=== PATIENT | female | born 1940 | race Caucasian/White ===

== ENCOUNTER → 2017-07-29 | Day surgery (SDC) | payer OTHER ==
[2017-06-26 08:13] VITALS: Ht 172.7 cm; Wt 77.3 kg
[~2017-07-29] VITALS: Ht 172.7 cm; Wt 77.3 kg
[~2017-07-29] MED LIST: 500ML BSS 0.3ML EPI 1:1000PF IRRIG ONE; ACETAMINOPHEN 325 MG TAB PO PRN; AMVISC PLUS 0.8ML SYRINGE INT OCU ONE; ASCA500 PO; ASPI81TA21 PO; ATROPINE SULFATE 0.1 MG/ML 5ML SYR IV PRN; BSS FLUSH ONE; CALC500C70 PO; CHOL100010 PO; EpHEDrine SULFATE INJ 50 MG/ML AMP IV PRN; EpINEphrine INJ 1MG/ML AMP 1 MG/ML AMP ONE; FISHOIL PO; GLCSC500400 PO; LACTATED RINGER'S 1000ML 500 ML IV SCH; LEVO150T PO; LIDOCAINE 3.5% OPH GEL PER APPLICATION CHARGE ONE; LIDOCAINE HCL 1% MPF 2 ML VIAL ONE; MECL1TAB42 PO; MIDAZOLAM HCL 1 MG/ML 2ML VIAL ONE; MULT-1092 PO; OCUCOAT 1 ML SOLN IO ONE; PHENYLEPHRINE HCL 10% OP SOLN PER DROP CHARGE OPL SCH; POVIDONE-IODINE OP SOLN 30 ML BTL ONE; PROPARACAINE 0.5% OP SOLN PER DROP CHARGE OPL SCH; TOBRAMYCIN/DEXAMETHASONE OPH OINT PER APPLN CHARGE ONE
[2017-07-29] MEDS: PHENYLEPHRINE HCL 2.5% OP SOLN PER DROP CHARGE OPL SCH ×2 (09:13→09:18)
[2017-07-29] MEDS: TROPICAMIDE 1% OP SOLN PER DROP CHARGE OPL SCH ×2 (09:14→09:19)
[2017-07-29] MEDS: CYCLOPENTOLATE HCL 1% OP SOLN PER DROP CHARGE OPL SCH ×2 (09:15→09:20)
[2017-07-29] MEDS: KETOROLAC 0.5% OP SOLN PER DROP CHARGE OPL SCH ×2 (09:16→09:21)
[2017-07-29] MEDS: GATIFLOXACIN OP SOLN PER DROP CHARGE OPL SCH ×2 (09:17→09:26)
--- NOTE | 2017-07-29 09:57 | History & Physical Bridge - [place] ---
H&P Re-Evaluation Bridge Note: I have examined the patient, reviewed the History & Physical and in the interval since the performance of the History & Physical I have noted the following changes of clinical significance: No changes noted
--- NOTE | 2017-07-29 10:34 | [facility] Operative Report ---
Operative Report Date of Service Jul 29, 2017. Operative Report 1. PREOPERATIVE DIAGNOSIS: Cataract of the left eye. 2. POSTOPERATIVE DIAGNOSIS: Same. 3. PROCEDURE: Phacoemulsification with intraocular lens implantation of the left eye. SURGEON: Dr. Kennedy Nathan. ANESTHESIA: Topical Lidocaine gel, 1% Non- Preserved intracameral Lidocaine, and monitored intravenous sedation. INDICATIONS FOR THE PROCEDURE: The patient is a 77 - year-old female with a history of cataract of the left eye causing significant visual impairment. The details of the proposed procedure were explained to the patient who asked appropriate questions and following discussion of all risks, benefits and alternatives agreed to have the procedure done. 4. OPERATION AND FINDINGS: DESCRIPTION OF PROCEDURE: After informed consent was obtained, the patient was brought to the Operating Room at the [facility]. The patient was placed in a supine position and then the left eye was prepped and draped in the usual sterile fashion for intraocular surgery. A drop of topical Lidocaine gel was placed in the operative eye. A wire lid speculum was then placed in the fornices. A corneal paracentesis was then created temporally. The Non-Preserved Lidocaine was then instilled into the anterior chamber. The anterior chamber was then pressurized with viscoelastic. A 2.0 mm clear corneal incision was then created temporally. A cystotome was inserted into the anterior chamber and used to create a tear in the anterior lens capsule. This capsular tear was then used to create a small flap and the flap was dragged in a counterclockwise direction in order to create a continuous curvilinear capsulorrhexis. Hydrodissection was accomplished with balanced salt solution. Phacoemulsification of the lens nucleus was then performed in a standard [id number]-uhb-pugbxhy technique. The phaco time was 24 seconds with an average power of 13 %. The remaining cortical material was removed using irrigation aspiration. The capsular bag was then filled with viscoelastic. A Sukhwinder SA60AT +35.0 diopters lens was then loaded into the injector and injected into the capsular bag. The remaining viscoelastic was removed with the irrigation aspiration handpiece. The wound was hydrated and then checked and found to be watertight. The intraocular pressure was checked and found to be adequate. The wire lid speculum was removed and the patient's face was cleaned and dried. TobraDex ointment was placed in the inferior fornix. The patient was discharged to the Recovery Room having tolerated the procedure well. There were no complications. The patient will be seen tomorrow in the office for follow-up. I attest to the content of the Intraoperative Record and any orders documented therein. Any exceptions are noted below.
--- NOTE | 2017-07-29 10:34 | Discharge Instructions-SurgCtr ---
Discharge Instructions Date of Service Jul 29, 2017. Visit Reason for Visit: Cataract Left Eye Discharge Discharge Diagnosis / Problem: cataract Discharge Goals Goal(s): Improve function Activity Recommendations Activity Limitations: per Instructions/Follow-up section Anesthesia . Post Anesthesia Instructions: If you have had General Anesthesia or IV Sedation: * Do not drive today. * Resume driving when surgeon permits. * Do not make important decisions or sign legal documents today. * Call surgeon for: 1. Temperature elevations greater than 101 degrees F. 2. Uncontrollable pain. 3. Excessive bleeding. 4. Persistent nausea and vomiting. 5. Medication intolerance (nausea, vomiting or rash). * For nausea and vomiting use only clear liquids such as: tea, soda, bouillon until nausea subsides, then gradually increase diet as tolerated. * If you have any concerns or questions, call your surgeon's office. If physician is unavailable and it is an emergency, call 911 or go to the nearest emergency room. . Instructions / Follow-Up Instructions / Follow-Up ACTIVITY RECOMMENDATIONS: * No strenuous lifting, jogging or running for 4 days * No swimming or yard work for 1 week. * Limited bending is permitted, such as putting on shoes. RETURN TO SCHOOL/WORK: No work until seen by physician in office. MEDICATIONS: Resume previous medications unless instructed otherwise by your surgeon. This includes eye drops for glaucoma. Zymaxid/Gatifloxacin (boykin cap) - one drop every 2 hours until bedtime Nevanac/Ilevro/Prolensa/Ketorolac (aguayo cap) - one drop every 4 hours until bedtime Prednisolone/Durezol (white/pink cap, SHAKE WELL) - one drop every 2 hours until bedtime Starting tomorrow - all 3 drops every 4 hours until seen in the office Optive drops - as needed for discomfort SPECIAL CARE INSTRUCTIONS: * Wear eyeshield when sleeping, for four nights. * You may wear your own glasses or sunglasses while awake. * You may read or watch TV * You may shower and wash your face, but be gentle around the eye and pat dry. * Blurry vision and mild irritation are normal. * Call office if pain is more severe or vision becomes dark at . FOLLOW UP VISIT: Follow-up with Dr Nathan tomorrow. Diet Recommendations Home Diet: resume previous diet Procedures Procedures Performed: Left Cataract Phacoemulsification With Intraocular Lens Implant Pending Studies Studies pending at discharge: no Medical Emergencies . Who to Call and When: Medical Emergencies: If at any time you feel your situation is an emergency, please call 911 immediately. . Non-Emergent Contact Non-Emergency issues call your: [employer] Instructional Assistant . . "Provider Documentation" section prepared by Kennedy Nathan. .
[2017-07-29 11:20] VITALS: BP 149/69; PULSE 63; TEMP 36.6; O2SAT 96
--- NOTE | 2017-07-29 11:31 | Anesthesia Progress Nt - [facility] ---
Anesthesia Post Op Note Date & Time Jul 29, 2017 at 11:31 Vital Signs Pain Intensity: 0 Vital Signs Past 12 Hours Date Time Temp Pulse Resp B/P (MAP) Pulse Ox O2 Delivery O2 Flow Rate FiO2 07/29/17 11:20 36.6 63 14 149/69 (95) 96 Room Air 07/29/17 10:36 36.6 64 14 148/76 (100) 64 Room Air 07/29/17 09:06 36.5 80 16 158/91 (113) 96 Room Air Notes Mental Status: alert / awake / arousable, participated in evaluation Pt Amnestic to Procedure: Yes Nausea / Vomiting: adequately controlled Pain: adequately controlled Airway Patency, RR, SpO2: stable & adequate BP & HR: stable & adequate Hydration State: stable & adequate Anesthetic Complications: no major complications apparent
== END | disposition home or self-care (01) ==
LOC: X.SURG 08:51
PROVIDERS: ATTEND Ophthalmology
DX: H26.9 Unspecified cataract (principal); E11.9 Type 2 diabetes mellitus without complications; E78.5 Hyperlipidemia, unspecified; E03.9 Hypothyroidism, unspecified; Z79.82 Long term (current) use of aspirin; Z79.899 Other long term (current) drug therapy

== ENCOUNTER → 2017-08-12 | Day surgery (SDC) | payer OTHER ==
[2017-08-04 13:29] VITALS: Ht 172.7 cm; Wt 77.3 kg
[~2017-08-12] VITALS: Ht 172.7 cm; Wt 77.3 kg
[~2017-08-12] MED LIST changes: -PHENYLEPHRINE HCL 10% OP SOLN PER DROP CHARGE OPL SCH; +PHENYLEPHRINE HCL 10% OP SOLN PER DROP CHARGE OPR SCH; -PROPARACAINE 0.5% OP SOLN PER DROP CHARGE OPL SCH; +PROPARACAINE 0.5% OP SOLN PER DROP CHARGE OPR SCH
[2017-08-12] MEDS: CYCLOPENTOLATE HCL 1% OP SOLN PER DROP CHARGE OPR SCH ×2 (08:35→08:49)
[2017-08-12] MEDS: PHENYLEPHRINE HCL 2.5% OP SOLN PER DROP CHARGE OPR SCH ×2 (08:35→08:47)
[2017-08-12] MEDS: TROPICAMIDE 1% OP SOLN PER DROP CHARGE OPR SCH ×2 (08:36→08:48)
[2017-08-12] MEDS: KETOROLAC 0.5% OP SOLN PER DROP CHARGE OPR SCH ×2 (08:39→08:51)
[2017-08-12] MEDS: GATIFLOXACIN OP SOLN PER DROP CHARGE OPR SCH ×2 (08:40→08:54)
--- NOTE | 2017-08-12 09:21 | Discharge Instructions-SurgCtr ---
Discharge Instructions Date of Service Aug 12, 2017. Visit Reason for Visit: Cataract Right Eye Discharge Discharge Diagnosis / Problem: cataract Discharge Goals Goal(s): Improve function Activity Recommendations Activity Limitations: per Instructions/Follow-up section Anesthesia . Post Anesthesia Instructions: If you have had General Anesthesia or IV Sedation: * Do not drive today. * Resume driving when surgeon permits. * Do not make important decisions or sign legal documents today. * Call surgeon for: 1. Temperature elevations greater than 101 degrees F. 2. Uncontrollable pain. 3. Excessive bleeding. 4. Persistent nausea and vomiting. 5. Medication intolerance (nausea, vomiting or rash). * For nausea and vomiting use only clear liquids such as: tea, soda, bouillon until nausea subsides, then gradually increase diet as tolerated. * If you have any concerns or questions, call your surgeon's office. If physician is unavailable and it is an emergency, call 911 or go to the nearest emergency room. . Diet Recommendations Home Diet: resume previous diet Pending Studies Studies pending at discharge: no Medical Emergencies . Who to Call and When: Medical Emergencies: If at any time you feel your situation is an emergency, please call 911 immediately. . Non-Emergent Contact Non-Emergency issues call your: Inspector Air Carrier . . "Provider Documentation" section prepared by Kennedy Nathan. .
--- NOTE | 2017-08-12 09:22 | [facility] Operative Report ---
Operative Report Date of Service Aug 12, 2017. Operative Report 1. PREOPERATIVE DIAGNOSIS: Cataract of the right eye. 2. POSTOPERATIVE DIAGNOSIS: Same. 3. PROCEDURE: Phacoemulsification with intraocular lens implantation of the right eye. SURGEON: Dr. Kennedy Nathan. ANESTHESIA: Topical Lidocaine gel, 1% Non- Preserved intracameral Lidocaine, and monitored intravenous sedation. INDICATIONS FOR THE PROCEDURE: The patient is a 77 - year-old female with a history of cataract of the right eye causing significant visual impairment. The details of the proposed procedure were explained to the patient who asked appropriate questions and following discussion of all risks, benefits and alternatives agreed to have the procedure done. 4. OPERATION AND FINDINGS: DESCRIPTION OF PROCEDURE: After informed consent was obtained, the patient was brought to the Operating Room at the [facility]. The patient was placed in a supine position and then the right eye was prepped and draped in the usual sterile fashion for intraocular surgery. A drop of topical Lidocaine gel was placed in the operative eye. A wire lid speculum was then placed in the fornices. A corneal paracentesis was then created temporally. The Non-Preserved Lidocaine was then instilled into the anterior chamber. The anterior chamber was then pressurized with viscoelastic. A 2.0 mm clear corneal incision was then created temporally. A cystotome was inserted into the anterior chamber and used to create a tear in the anterior lens capsule. This capsular tear was then used to create a small flap and the flap was dragged in a counterclockwise direction in order to create a continuous curvilinear capsulorrhexis. Hydrodissection was accomplished with balanced salt solution. Phacoemulsification of the lens nucleus was then performed in a standard nvkbzi-hhu-ddkcczo technique. The phaco time was 24 seconds with an average power of 13 %. The remaining cortical material was removed using irrigation aspiration. The capsular bag was then filled with viscoelastic. A Sukhwinder SA60AT +35.0 diopters lens was then loaded into the injector and injected into the capsular bag. The remaining viscoelastic was removed with the irrigation aspiration handpiece. The wound was hydrated and then checked and found to be watertight. The intraocular pressure was checked and found to be adequate. The wire lid speculum was removed and the patient's face was cleaned and dried. TobraDex ointment was placed in the inferior fornix. The patient was discharged to the Recovery Room having tolerated the procedure well. There were no complications. The patient will be seen tomorrow in the office for follow-up. I attest to the content of the Intraoperative Record and any orders documented therein. Any exceptions are noted below.
[2017-08-12 09:24] VITALS: TEMP 36.8
[2017-08-12 09:40] VITALS: BP 139/86; PULSE 64; O2SAT 94
--- NOTE | 2017-08-12 09:44 | Anesthesia Progress Nt - [facility] ---
Anesthesia Post Op Note Date & Time Aug 12, 2017 at 09:44 Vital Signs Pain Intensity: 0 Vital Signs Past 12 Hours Date Time Temp Pulse Resp B/P (MAP) Pulse Ox O2 Delivery O2 Flow Rate FiO2 08/12/17 09:40 64 16 139/86 (103) 94 Room Air 08/12/17 09:24 36.8 67 16 139/79 (99) 94 Room Air 08/12/17 08:05 36.5 84 16 143/84 (103) 95 Room Air Notes Mental Status: alert / awake / arousable, participated in evaluation Pt Amnestic to Procedure: Yes Nausea / Vomiting: adequately controlled Pain: adequately controlled Airway Patency, RR, SpO2: stable & adequate BP & HR: stable & adequate Hydration State: stable & adequate Anesthetic Complications: no major complications apparent
== END | disposition home or self-care (01) ==
LOC: X.SURG 07:56
PROVIDERS: ATTEND Ophthalmology
DX: H25.9 Unspecified age-related cataract (principal); E11.9 Type 2 diabetes mellitus without complications; E78.5 Hyperlipidemia, unspecified; E03.9 Hypothyroidism, unspecified; Z87.891 Personal history of nicotine dependence; Z79.82 Long term (current) use of aspirin; Z79.899 Other long term (current) drug therapy

== ENCOUNTER 2017-10-06 17:05 | Inpatient (IN) | payer OTHER ==
[~2017-10-06] VITALS: Ht 172.7 cm; Wt 79.8 kg
[~2017-10-06 17:05] MED LIST changes: -500ML BSS 0.3ML EPI 1:1000PF IRRIG ONE; -ACETAMINOPHEN 325 MG TAB PO PRN; -AMVISC PLUS 0.8ML SYRINGE INT OCU ONE; -ATROPINE SULFATE 0.1 MG/ML 5ML SYR IV PRN; -BSS FLUSH ONE; -EpHEDrine SULFATE INJ 50 MG/ML AMP IV PRN; -EpINEphrine INJ 1MG/ML AMP 1 MG/ML AMP ONE; -LACTATED RINGER'S 1000ML 500 ML IV SCH; -LIDOCAINE 3.5% OPH GEL PER APPLICATION CHARGE ONE; -LIDOCAINE HCL 1% MPF 2 ML VIAL ONE; -MIDAZOLAM HCL 1 MG/ML 2ML VIAL ONE; -OCUCOAT 1 ML SOLN IO ONE; -PHENYLEPHRINE HCL 10% OP SOLN PER DROP CHARGE OPR SCH; -POVIDONE-IODINE OP SOLN 30 ML BTL ONE; -PROPARACAINE 0.5% OP SOLN PER DROP CHARGE OPR SCH; -TOBRAMYCIN/DEXAMETHASONE OPH OINT PER APPLN CHARGE ONE
--- NOTE | 2017-10-06 17:54 | DIAGNOSTIC IMAGING REPORT ---
CHEST ONE VIEW PORTABLE CLINICAL HISTORY: EVALUATE WEAKNESS dyspnea COMPARISON STUDY: 08/09/2015 FINDINGS: The bones soft tissues and hemidiaphragms are normal. The cardiomediastinal silhouette is normal. The lungs are clear. The pulmonary vasculature is normal. IMPRESSION: Negative chest. The above report was generated using voice recognition software. It may contain grammatical, syntax or spelling errors. Electronically signed by: Florencio Barrera M.D. 10/06/2017 5:53 PM Dictated Date/Time: 10/06/2017 5:52 PM
--- NOTE | 2017-10-06 18:02 | EMERGENCY ROOM VISIT NOTE ---
History First contact with patient: 17:13 Chief Complaint: ABNORMAL LABS Stated Complaint: ABNORMAL LAB History of Present Illness The patient is a 77 year old female who presents to the Emergency Room with complaints of hematuria x 1 day, abnormal bruising and hematuria x 1 week, and abnormal platelet count of 10 found at physician's office this afternoon. Hematuria started early today (about 15 hours ago) with very dark red blood. She did not notice clots. She has not noticed blood in her stool. The abnormal bruising started suddenly last week. she reports no trauma, no recent fall, no physical abuse that would cause this. Lesions are most severe on her anterior left chest wall, but she has diffuse petechiae and purpura with numerous bruises on all extremeties. She reports no chronic medical conditions and has not noticed these symptoms before. She reports no blood thinner use, no recent change in her medication. She does take a baby aspirin daily. Review of Systems . Constitutional: + problem reported (lightheaded for the last few days), No fever, No chills, No sweats, No weight loss, No weakness, No fatigue ENT: + unusual epistaxis Abdomen: No pain, No nausea, No vomiting, No diarrhea, No constipation, No GI bleeding, No problem reported Musculoskeletal: + joint pain (arthritis in her neck), No muscle pain, No swelling, No calf pain, No problem reported Genitourinary - Female: + hematuria Neurologic: No memory loss, No paralysis, No weakness, No numbness/tingling , No vertigo, No balance problems, No problem reported Integumentary: No rash, No itch, No new/changing skin lesions, No color change, No bleeding, No problem reported Past Medical/Surgical History Medical Problems: (1) Thyroid dysfunction Surgical Problems: (1) H/O: hysterectomy Family History Cancer Social History Smoking Status: Former Smoker Alcohol Use: none Drug Use: none Marital Status: Housing Status: lives with significant other Occupation Status: retired Current/Historical Medications Scheduled Ascorbic Acid (Vitamin C *), 500 MG PO DAILY Aspirin Enteric Coated (Ecotrin Or Generic), 81 MG PO QAM Calcium/Vitamin D (Os-Jayjay 500 Plus D), 1 TAB PO DAILY Cholecalciferol (Vitamin D), 1,000 INTER.UNIT PO DAILY Fish Oil ([place]-3), 1 CAP PO DAILY Glucosamine-Chondroitin (Glucosamine/Chondroitin), 1 TAB PO DAILY Levothyroxine Sodium (Synthroid), 150 MCG PO 6XWK Multiple Vitamins W/ Minerals (Centrum Silver 50+Women), 1 TAB PO QAM Scheduled PRN Meclizine Hcl (Meclizine Hcl), 25 MG PO TID PRN for DIZZINESS Physical Exam Vital Signs Date Time Temp Pulse Resp B/P (MAP) Pulse Ox O2 Delivery O2 Flow Rate FiO2 10/06/17 17:19 74 10/06/17 17:17 36.9 73 18 161/96 92 Room Air Physical Exam . General Appearance: WD/WN, no apparent distress Head: normocephalic, atraumatic Eyes: normal inspection, EOMI, sclerae normal, + pertinent finding ( injected left conjunctivae) ENT: hearing grossly normal, + pertinent finding (petechiae and purpura on inner cheek page, tongue and lips; patient has active epistaxis) Neck: supple, no adenopathy, no JVD, no carotid bruits, trachea midline Respiratory/Chest: chest non-tender, lungs clear, normal breath sounds, no respiratory distress, no accessory muscle use Cardiovascular: regular rate, rhythm, no edema, no gallop, no JVD, no murmur Abdomen / GI: normal bowel sounds, non tender, soft Back: normal inspection, no CVA tenderness Extremities: + pertinent finding (normal ROM and no tenderness, but diffuse petechiae and purpura, with several confluent bruises on each extremity.) Neurologic/Psych: security system installer II-XII nml as tested, no motor/sensory deficits, alert , normal mood/affect Medical Decision & Procedures Laboratory Results Test 10/06/17 17:40 Medical Decision Please refer to Dr. Aguilar's note for further evaluation and progress note. Impression Primary Impression: Thrombocytopenia Departure Information Referrals Radha Hitchcock M.D. (PCP) Patient Instructions [facility] Resident Tracking Resident Involvement: Resident Care Provided Care Provided: Adult ED
[2017-10-06] MEDS ORDERED: OXYMETAZOLINE HCL 0.05% NA SPR 15 ML BTL ONE ×2 (18:11→18:15)
[2017-10-06 18:13] LABS: PROTHROMBIN TIME (PATIENT) 10.5 SECONDS (9.0-12.0)
[2017-10-06 18:16] LABS: BUN/CREATININE RATIO 23.7 (10-20); CALCIUM 8.8 mg/dl (8.5-10.1); CREATININE 0.9 mg/dl (0.60-1.20); MAGNESIUM 2.1 mg/dl (1.8-2.4); POTASSIUM 3.9 mmol/L (3.5-5.1)
[2017-10-06 18:21] LABS: HEMATOCRIT 37.9 % (37-47); MEAN CELL VOLUME 101.6 fL (80-100); MEAN CORPUSCULAR HEMOGLOBIN 35.4 pg (25-34); PLATELET COUNT 3 K/uL (130-400); RED BLOOD COUNT 3.73 M/uL (4.2-5.4); WHITE BLOOD COUNT 10.18 K/uL (4.8-10.8)
[2017-10-06 18:27] LABS: THYROID STIMULATING HORMONE 18.7 uIu/ml (0.300-4.500)
[2017-10-06 18:34] LABS: MANUAL MICROSCOPIC REQUIRED? YES; URINE APPEARANCE TURBID (CLEAR); URINE BILIRUBIN NEG (NEG); URINE COLOR RED; URINE NITRITE NEG (NEG); UROBILINOGEN NEG (NEG)
[2017-10-06 18:35] LABS: REVIEW REQ? NO
[2017-10-06 18:40] LABS: URINE BACTERIA NEG (NEG); URINE RBC >30 /hpf (0-4)
[2017-10-06 18:46] LABS: BASO % 0.4 %; BASO ABS # 0.04 K/uL (0-0.2); COMPLETE YES; EOS % 1.2 %; IG% 0.3 %; LYMPH ABS # 3.16 K/uL (1.2-3.4); MEAN CORPUSCULAR HGB CONC 34.8 g/dl (32-36); MONO % 8.8 %; NEUT % 58.3 %; PLT ESTIMATE SIGNIFIC DECREASED
--- NOTE | 2017-10-06 18:47 | DIAGNOSTIC IMAGING REPORT ---
HEAD WITHOUT CONTRAST (CT) CT DOSE: 1139.46 mGy.cm HISTORY: Mental status change headache, thrombocytopenia TECHNIQUE: Multiaxial CT images of the head were performed without the use of intravenous contrast. A dose lowering technique was utilized adhering to the principles of ALARA. Comparison: 08/09/2015 Findings: The paranasal sinuses and mastoid air cells are clear. The calvarium and skull base are intact. The ventricles and sulci are within normal limits. There is no mass, hematoma, midline shift, or acute infarct. Mild age-related chronic small vessel change Impression: No acute intracranial abnormality. Age-related chronic small vessel change The above report was generated using voice recognition software. It may contain grammatical, syntax or spelling errors. Electronically signed by: Florencio Barrera M.D. 10/06/2017 6:45 PM Dictated Date/Time: 10/06/2017 6:44 PM
[2017-10-06] MEDS ORDERED: DEXAMETHASONE **PF** INJ 10 MG/ML VIAL IV ONE (19:15)
--- NOTE | 2017-10-06 19:48 | EMERGENCY ROOM VISIT NOTE ---
History Report prepared by Silvano: Rosie Isidro Under the Supervision of: Dr. Chris Aguilar M.D. First contact with patient: 17:11 Chief Complaint: ABNORMAL LABS Stated Complaint: ABNORMAL LAB History of Present Illness The patient is a 77 year old female who presents to the Emergency Room with complaints of abnormal labs today. The patient states that she has had epistaxis for 1 week and has had hematuria for 1 day. The patient reports that she saw her PCP today, was told her platelet count was 10, and was referred here. She reports that she takes baby Aspirin. The patient also reports having diffuse bruising and petechiae for 1 week. She states that she has also been having waxing and waning headaches. She states that she takes baby Aspirin but is not on other blood thinners. Pt denies LOC, fevers, chills, diaphoresis, visual changes, neck pain, chest pain, breathing difficulties, nausea, vomiting , abdominal pain, back pain, melena, hematochezia, numbness, weakness, lymphadenopathy, rash, or other complaints. Source of History: patient Onset: today Position: other (global) Quality: other (abnormal labs ) Associated Symptoms: + headache, No fevers Note: additional symptoms: hematuria and epistaxis Review of Systems See HPI for pertinent positives and negatives. A total of ten systems were reviewed and were otherwise negative. Past Medical & Surgical Medical Problems: (1) Thyroid dysfunction Surgical Problems: (1) H/O: hysterectomy Family History Cancer Social History Smoking Status: Former Smoker Alcohol Use: none Drug Use: none Marital Status: Housing Status: lives with significant other Occupation Status: retired Current/Historical Medications Scheduled Ascorbic Acid (Vitamin C *), 500 MG PO DAILY Aspirin Enteric Coated (Ecotrin Or Generic), 81 MG PO QAM Calcium/Vitamin D (Os-Jayjay 500 Plus D), 1 TAB PO DAILY Cholecalciferol (Vitamin D), 1,000 INTER.UNIT PO DAILY Fish Oil ([place]-3), 1 CAP PO DAILY Glucosamine-Chondroitin (Glucosamine/Chondroitin), 1 TAB PO DAILY Levothyroxine Sodium (Synthroid), 150 MCG PO DAILY Multiple Vitamins W/ Minerals (Centrum Silver 50+Women), 1 TAB PO QAM Scheduled PRN Meclizine Hcl (Meclizine Hcl), 25 MG PO TID PRN for DIZZINESS Allergies Coded Allergies: No Known Allergies (Unverified , 10/06/17) Physical Exam Vital Signs Date Time Temp Pulse Resp B/P (MAP) Pulse Ox O2 Delivery O2 Flow Rate FiO2 10/06/17 18:48 74 18 137/95 93 Room Air 10/06/17 17:55 93 Room Air 10/06/17 17:55 63 18 151/81 94 Room Air 10/06/17 17:19 74 10/06/17 17:17 36.9 73 18 161/96 92 Room Air Physical Exam GENERAL: Awake, alert, well-appearing, in no distress HENT: Normocephalic, atraumatic. Palatal petechiae noted. Petechiae noted on tongue. EYES: Normal conjunctiva. Sclera non-icteric. NECK: Supple. No nuchal rigidity. FROM. No JVD. RESPIRATORY: Clear to auscultation. CARDIAC: Regular rate, normal rhythm. Extremities warm and well perfused. Pulses equal. ABDOMEN: Soft, non-distended. No tenderness to palpation. No rebound or guarding. No masses. RECTAL: Deferred. MUSCULOSKELETAL: Chest examination reveals no tenderness. The back is symmetrical on inspection without obvious abnormality. There is no CVA tenderness to palpation. No joint edema. LOWER EXTREMITIES: Calves are equal size bilaterally and non-tender. No edema. No discoloration. NEURO: Normal sensorium. No sensory or motor deficits noted. SKIN: No jaundice noted. Diffuse petechiae and bruising. Medical Decision & Procedures ER Provider Diagnostic Interpretation: Radiology results as stated below per my review and radiologist interpretation: CHEST ONE VIEW PORTABLE CLINICAL HISTORY: EVALUATE WEAKNESS dyspnea COMPARISON STUDY: 08/09/2015 FINDINGS: The bones soft tissues and hemidiaphragms are normal. The cardiomediastinal silhouette is normal. The lungs are clear. The pulmonary vasculature is normal. IMPRESSION: Negative chest. The above report was generated using voice recognition software. It may contain grammatical, syntax or spelling errors. Electronically signed by: Florencio Barrera M.D. 10/06/2017 5:53 PM Dictated Date/Time: 10/06/2017 5:52 PM HEAD WITHOUT CONTRAST (CT) CT DOSE: 1139.46 mGy.cm HISTORY: Mental status change headache, thrombocytopenia TECHNIQUE: Multiaxial CT images of the head were performed without the use of intravenous contrast. A dose lowering technique was utilized adhering to the principles of ALARA. Comparison: 08/09/2015 Findings: The paranasal sinuses and mastoid air cells are clear. The calvarium and skull base are intact. The ventricles and sulci are within normal limits. There is no mass, hematoma, midline shift, or acute infarct. Mild age-related chronic small vessel change Impression: No acute intracranial abnormality. Age-related chronic small vessel change The above report was generated using voice recognition software. It may contain grammatical, syntax or spelling errors. Electronically signed by: Florencio Barrera M.D. 10/06/2017 6:45 PM Dictated Date/Time: 10/06/2017 6:44 PM Laboratory Results 10/06/17 16:45 Red Blood Count 3.73, Mean Corpuscular Volume 101.6, Mean Corpuscular Hemoglobin 35.4, Mean Corpuscular Hemoglobin Concent 34.8, Neutrophils (%) (Auto ) 58.3, Lymphocytes (%) (Auto) 31.0, Monocytes (%) (Auto) 8.8, Eosinophils (%) ( Auto) 1.2, Basophils (%) (Auto) 0.4, Neutrophils # (Auto) 5.93, Lymphocytes # ( Auto) 3.16, Monocytes # (Auto) 0.90, Eosinophils # (Auto) 0.12, Basophils # ( Auto) 0.04 10/06/17 16:45 Test 10/06/17 16:45 10/06/17 18:10 White Blood Count 10.18 K/uL (4.8-10.8) Red Blood Count 3.73 M/uL (4.2-5.4) Hemoglobin 13.2 g/dL (12.0-16.0) Hematocrit 37.9 % (37-47) Mean Corpuscular Volume 101.6 fL (80-100) Mean Corpuscular Hemoglobin 35.4 pg (25-34) Mean Corpuscular Hemoglobin Concent 34.8 g/dl (32-36) Platelet Count 3 K/uL (130-400) Neutrophils (%) (Auto) 58.3 % Lymphocytes (%) (Auto) 31.0 % Monocytes (%) (Auto) 8.8 % Eosinophils (%) (Auto) 1.2 % Basophils (%) (Auto) 0.4 % Neutrophils # (Auto) 5.93 K/uL (1.4-6.5) Lymphocytes # (Auto) 3.16 K/uL (1.2-3.4) Monocytes # (Auto) 0.90 K/uL (0.11-0.59) Eosinophils # (Auto) 0.12 K/uL (0-0.5) Basophils # (Auto) 0.04 K/uL (0-0.2) RDW Standard Deviation 49.9 fL (36.4-46.3) RDW Coefficient of Variation 13.4 % (11.5-14.5) Immature Granulocyte % (Auto) 0.3 % Immature Granulocyte # (Auto) 0.03 K/uL (0.00-0.02) Platelet Estimate SIGNIFIC DECREASED Prothrombin Time 10.5 SECONDS (9.0-12.0) Prothromb Time International Ratio 1.0 (0.9-1.1) Activated Partial Thromboplast Time 25.4 SECONDS (21.0-31.0) Partial Thromboplastin Ratio 1.0 Anion Gap 9.0 mmol/L (3-11) Est Creatinine Clear Calc Drug Dose 60.0 ml/min Estimated GFR () 72.0 Estimated GFR (Non- 62.1 BUN/Creatinine Ratio 23.7 (10-20) Calcium Level 8.8 mg/dl (8.5-10.1) Magnesium Level 2.1 mg/dl (1.8-2.4) Total Bilirubin 1.2 mg/dl (0.2-1) Direct Bilirubin 0.2 mg/dl (0-0.2) Aspartate Amino Transf (AST/SGOT) 28 U/L (15-37) Alanine Aminotransferase (ALT/SGPT) 34 U/L (12-78) Alkaline Phosphatase 54 U/L (45-117) Total Protein 7.6 gm/dl (6.4-8.2) Albumin 4.2 gm/dl (3.4-5.0) Lipase 199 U/L (73-393) Thyroid Stimulating Hormone (TSH) 18.700 uIu/ml (0.300-4.500) Urine Color RED Urine Appearance TURBID (CLEAR) Urine pH 7.0 (4.5-7.5) Urine Specific [place] 1.020 (1.000-1.030) Urine Protein 2+ (NEG) Urine Glucose (UA) NEG (NEG) Urine Ketones NEG (NEG) Urine Occult Blood 3+ (NEG) Urine Nitrite NEG (NEG) Urine Bilirubin NEG (NEG) Urine Urobilinogen NEG (NEG) Urine Leukocyte Esterase TRACE (NEG) Urine RBC >30 /hpf (0-4) Urine WBC 1-5 /hpf (0-5) Urine Epithelial Cells 0-5 /lpf (0-5) Urine Bacteria NEG (NEG) Laboratory results reviewed by me Medications Administered Medications (Trade) Dose Ordered Sig/[place] Route Start Time Stop Time Status Last Admin Dose Admin Oxymetazoline HCl (Afrin 0.05% Nasal [place]) 1 sprays NOW ONCE NA 10/06/17 18:15 10/06/17 18:16 DC 10/06/17 18:15 1 SPRAYS Dexamethasone Sodium Phosphate (Dexamethasone Inj Pf) 40 mg NOW ONCE IV 10/06/17 19:15 10/06/17 19:16 DC 10/06/17 19:23 40 MG ECG Indication: other (bleeding) Rate (beats per minute): 64 Rhythm: normal sinus Findings: no acute ischemic change, no ectopy ED Course 1751: The patient was evaluated in room B7. A complete history and physical exam was performed. 1810: Ordered Oxymetazoline HCl 75 sprays. 1814: Ordered Oxymetazoline HCl 1 sprays NA. 5: Discussed the patient's case. The patient will be evaluated for further treatment and disposition. Dr. Wyatt recommended 40 mg of Decadron now, a platelet transfusion, and admission. 1914: Ordered Dexamethasone Sodium Phosphate 40 mg IV. 1920: I checked on the patient and updated her on results. She gave consent for platelets. 5 Discussed the patient's case with Dr. Giraldo. The patient will be evaluated for further treatment and disposition. 0: Upon reexamination, the patient was resting. I discussed the test results and treatment plan with her. The patient will be evaluated for further management. Medical Decision Triage Nursing notes reviewed. The patient's presentation and history were concerning for bruising and easy bleeding Etiologies such as ITP, pancytopenia, malignancy, metabolic, infection, electrolyte abnormalities, cardiac sources, intracerebral event, toxicologic, as well as others were entertained. The patient was evaluated. She had diffuse petechiae and bruising. 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 Her blood work revealed a platelet count of 3. She had unremarkable chemistries. She did have hematuria but without signs of infection. She was given aspirin as she had some scant nasal bleeding. This helped. CT imaging did not reveal any evidence of intracranial bleeding. Chest x-ray was unremarkable. ECG was unremarkable. I discussed the case with hematology, Dr. Wyatt. He recommended 40 mg of IV Decadron and platelet transfusion. The patient was consented. She did receive IV platelets. I did consult with the [facility] hospitalist. 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 The patient was seen and examined with Dr. Rebecca Roberson, resident physician. We discussed the case and treatments ordered, reviewed the results, and determine the disposition. Please refer to the resident's note for additional details. I have been directly involved with the management and disposition as well as independently evaluated the patient as documented in this note. Medication Reconcilliation Current Medication List: was personally reviewed by me Blood Pressure Screening Patient's blood pressure: Elevated blood pressure will be monitored by hospitalist Consults Time Called: 1854 Consulting Physician: Dr. Wyatt - Hematology Returned Call: [phone] Discussed the patient's case. The patient will be evaluated for further treatment and disposition. Dr. Wyatt recommended 40 mg of Decadron now, a platelet transfusion, and admission. Additional Consults: Time Called: 1919 Consulted Physician: Dr. Tom Christy Returned Call: [phone] Additional Comments: Discussed the patient's case. The patient will be evaluated for further treatment and disposition. Impression Primary Impression: Thrombocytopenia Scribe Attestation The scribe's documentation has been prepared under my direction and personally reviewed by me in its entirety. I confirm that the note above accurately reflects all work, treatment, procedures, and medical decision making performed by me. Departure Information Dispostion Being Evaluated By Hospitalist Referrals Radha Hitchcock M.D. (PCP) Patient Instructions My [facility]
[2017-10-06 20:55] VITALS: BP 145/112; PULSE 71; TEMP 36.8; O2SAT 95
[2017-10-06 21:06] VITALS: BP 153/91; PULSE 69; TEMP 36.8; O2SAT 95
[2017-10-06 21:20] VITALS: BP 159/84; PULSE 72; TEMP 36.7; O2SAT 92; Ht 172.7 cm; Wt 79.8 kg
[2017-10-06] MEDS: SODIUM CHLORIDE 0.9% 1000ML 1,000 ML IV SCH (22:04)
--- NOTE | 2017-10-06 23:42 | History and Physical ---
History & Physical Date & Time of Service: Oct 06, 2017 at 22:43 Chief Complaint: Thrombocytopenia Primary Care Physician: Radha Hitchcock M.D. History of Present Illness Source: patient, clinic records This is a 77 year old female with a PMH of hypothyroidism, HLD - presents with a one week history of nose bleeds, petechiae and bruising noted throughout body ; and she also developed hematuria on the day of arrival. She was seen by her primary care physician as an outpatient. She had blood work done and noted to have platelets < 10k. She was told to come to the ER right away for further evaluation. Upon presentation, she continued to have intermittent nose bleeds and hematuria. She denied any illness prior to these events. Denies any change in diet or medications. No chest pain/shortness of breath, denies nausea/ vomiting/diarrhea. Past Medical/Surgical History Medical Problems: (1) Thyroid dysfunction Status: Chronic Surgical Problems: (1) H/O: hysterectomy Status: Resolved Family History Cancer Social History Smoking Status: Former Smoker Drug Use: none Marital Status: Housing status: lives with significant other Occupational Status: retired Allergies Coded Allergies: No Known Allergies (Unverified , 10/06/17) Home Medications Scheduled Ascorbic Acid (Vitamin C *), 500 MG PO DAILY Aspirin Enteric Coated (Ecotrin Or Generic), 81 MG PO QAM Calcium/Vitamin D (Os-Jayjay 500 Plus D), 1 TAB PO DAILY Cholecalciferol (Vitamin D), 1,000 INTER.UNIT PO DAILY Fish Oil ([place]-3), 1 CAP PO DAILY Glucosamine-Chondroitin (Glucosamine/Chondroitin), 1 TAB PO DAILY Levothyroxine Sodium (Synthroid), 150 MCG PO DAILY Multiple Vitamins W/ Minerals (Centrum Silver 50+Women), 1 TAB PO QAM Scheduled PRN Meclizine Hcl (Meclizine Hcl), 25 MG PO TID PRN for DIZZINESS Review of Systems Constitutional: No fever, No chills, No sweats, No weakness Eyes: No worsening of vision ENT: + unusual epistaxis Respiratory: No cough, No sputum, No wheezing, No shortness of breath, No dyspnea on exertion Cardiovascular: No chest pain, No edema, No palpitations Abdomen: No pain, No nausea, No vomiting, No diarrhea, No constipation, No GI bleeding Musculoskeletal: No joint pain, No muscle pain Genitourinary - Female: + hematuria, No dysuria, No urinary frequency, No urinary urgency, No urinary incontinence, No urinary retention Neurologic: No weakness, No numbness/tingling, No vertigo, No balance problems Hematologic / Lymphatic: + abnormal bleeding/bruising, + clotting problems, + swollen lymph nodes Integumentary: + new/changing skin lesions, + bleeding, No rash Allergic / Immunologic: No environmental allergies, No seasonal allergies Physical Exam Vital Signs Date Time Temp Pulse Resp B/P (MAP) Pulse Ox O2 Delivery O2 Flow Rate FiO2 10/06/17 21:20 36.7 72 18 159/84 92 Room Air 10/06/17 21:06 36.8 69 20 153/91 95 0.0 10/06/17 21:04 36.8 71 20 145/112 95 Room Air 10/06/17 20:55 36.8 71 20 145/112 95 0.0 10/06/17 18:48 74 18 137/95 93 Room Air 10/06/17 17:55 93 Room Air 10/06/17 17:55 63 18 151/81 94 Room Air 10/06/17 17:19 74 10/06/17 17:17 36.9 73 18 161/96 92 Room Air General Appearance: no apparent distress Head: normocephalic, atraumatic Eyes: normal inspection ENT: hearing grossly normal, + pertinent finding (epistaxis stopped during my exam) Respiratory/Chest: lungs clear, normal breath sounds, no respiratory distress, no accessory muscle use Cardiovascular: regular rate, rhythm, no edema, no murmur Extremities/Musculoskelatal: normal inspection, no calf tenderness, normal capillary refill, no pedal edema, normal range of motion Neurologic/Psych: no motor/sensory deficits, alert, normal mood/affect Skin: + pertinent finding (+petechiae throughout body; bruising noted throughout including a large ecchymotic area on the R chest wall) Diagnostics Laboratory Results Results Past 24 Hours Test 10/06/17 16:45 10/06/17 18:10 10/06/17 21:44 Range/Units White Blood Count 10.18 4.8-10.8 K/uL Red Blood Count 3.73 4.2-5.4 M/uL Hemoglobin 13.2 12.0-16.0 g/dL Hematocrit 37.9 37-47 % Mean Corpuscular Volume 101.6 80-100 fL Mean Corpuscular Hemoglobin 35.4 25-34 pg Mean Corpuscular Hemoglobin Concent 34.8 32-36 g/dl Platelet Count 3 130-400 K/uL Neutrophils (%) (Auto) 58.3 % Lymphocytes (%) (Auto) 31.0 % Monocytes (%) (Auto) 8.8 % Eosinophils (%) (Auto) 1.2 % Basophils (%) (Auto) 0.4 % Neutrophils # (Auto) 5.93 1.4-6.5 K/uL Lymphocytes # (Auto) 3.16 1.2-3.4 K/uL Monocytes # (Auto) 0.90 0.11-0.59 K/uL Eosinophils # (Auto) 0.12 0-0.5 K/uL Basophils # (Auto) 0.04 0-0.2 K/uL RDW Standard Deviation 49.9 36.4-46.3 fL RDW Coefficient of Variation 13.4 11.5-14.5 % Immature Granulocyte % (Auto) 0.3 % Immature Granulocyte # (Auto) 0.03 0.00-0.02 K/uL Platelet Estimate SIGNIFIC DECREASED Erythrocyte Sedimentation Rate 20 0-21 mm/hr Prothrombin Time 10.5 9.0-12.0 SECONDS Prothromb Time International Ratio 1.0 0.9-1.1 Activated Partial Thromboplast Time 25.4 21.0-31.0 SECONDS Partial Thromboplastin Ratio 1.0 Sodium Level 139 136-145 mmol/L Potassium Level 3.9 3.5-5.1 mmol/L Chloride Level 105 98-107 mmol/L Carbon Dioxide Level 25 21-32 mmol/L Anion Gap 9.0 3-11 mmol/L Blood Urea Nitrogen 21 7-18 mg/dl Creatinine 0.90 0.60-1.20 mg/dl Est Creatinine Clear Calc Drug Dose 60.0 ml/min Estimated GFR () 72.0 Estimated GFR (Non- 62.1 BUN/Creatinine Ratio 23.7 10-20 Random Glucose 102 70-99 mg/dl Calcium Level 8.8 8.5-10.1 mg/dl Magnesium Level 2.1 1.8-2.4 mg/dl Total Bilirubin 1.2 0.2-1 mg/dl Direct Bilirubin 0.2 0-0.2 mg/dl Aspartate Amino Transf (AST/SGOT) 28 15-37 U/L Alanine Aminotransferase (ALT/SGPT) 34 12-78 U/L Alkaline Phosphatase 54 45-117 U/L Total Protein 7.6 6.4-8.2 gm/dl Albumin 4.2 3.4-5.0 gm/dl Lipase 199 73-393 U/L Thyroid Stimulating Hormone (TSH) 18.700 0.300-4.500 uIu/ml Free Thyroxine 0.93 0.80-1.60 ng/dl Urine Color RED Urine Appearance TURBID CLEAR Urine pH 7.0 4.5-7.5 Urine Specific [place] 1.020 1.000-1.030 Urine Protein 2+ NEG Urine Glucose (UA) NEG NEG Urine Ketones NEG NEG Urine Occult Blood 3+ NEG Urine Nitrite NEG NEG Urine Bilirubin NEG NEG Urine Urobilinogen NEG NEG Urine Leukocyte Esterase TRACE NEG Urine RBC >30 0-4 /hpf Urine WBC 1-5 0-5 /hpf Urine Epithelial Cells 0-5 0-5 /lpf Urine Bacteria NEG NEG Microbiology Results 10/06/17 Urine Culture, Received Pending Diagnostic Radiology HEAD WITHOUT CONTRAST (CT) CT DOSE: 1139.46 mGy.cm HISTORY: Mental status change headache, thrombocytopenia TECHNIQUE: Multiaxial CT images of the head were performed without the use of intravenous contrast. A dose lowering technique was utilized adhering to the principles of ALARA. Comparison: 08/09/2015 Findings: The paranasal sinuses and mastoid air cells are clear. The calvarium and skull base are intact. The ventricles and sulci are within normal limits. There is no mass, hematoma, midline shift, or acute infarct. Mild age-related chronic small vessel change Impression: No acute intracranial abnormality. Age-related chronic small vessel change CHEST ONE VIEW PORTABLE CLINICAL HISTORY: EVALUATE WEAKNESS dyspnea COMPARISON STUDY: 08/09/2015 FINDINGS: The bones soft tissues and hemidiaphragms are normal. The cardiomediastinal silhouette is normal. The lungs are clear. The pulmonary vasculature is normal. IMPRESSION: Negative chest. EKG Normal sinus rhythm Left axis deviation Impression Assessment and Plan This is a 77 year old female with a PMH of hypothyroidism, HLD presents with epistaxis, hematuria, bruising and noted to have significant thrombocytopenia Thrombocytopenia pt. presented with signs/symptoms of thrombocytopenia outpatient labwork confirmed this; inpatient, her platelet count was < 3k hematology was called regarding platelets likely ITP will give decadron 40mg x3 days giving platelets, recheck CBC w/ diff in AM hem/onc consulted for further input; possible IVIG monitor in tele hold aspirin, hold vitamins Hypothyroidism TSH elevated, possibly due to an acute phase reaction Free t4 wnl continue Synthroid DVT ppx SCDs FULL CODE Advanced Directives Existing Living Will: Yes Existing Power of Medical Receptionist: Yes VTE Prophylaxis VTE Risk Assessment Done? Y/N: Yes Risk Level: Moderate
[2017-10-07] VITALS (15 sets, daily range): BP systolic 112–153; BP diastolic 57–83; PULSE 61–103; TEMP 36.3–36.8; O2SAT 90–96
[2017-10-07] MEDS: LEVOTHYROXINE 150 MCG TAB PO SCH (05:45)
[2017-10-07] MEDS: DEXAMETHASONE INJ 40 MG in DEXTROSE 5% 50ML 50 ML IV SCH (07:37)
[2017-10-07] MEDS: SODIUM CHLORIDE 0.9% 1000ML 1,000 ML IV SCH ×2 (07:38→23:37)
--- NOTE | 2017-10-07 08:08 | Medical Consult ---
Consultation Date of Consultation: Oct 07, 2017. Attending Physician: Yuri Baptiste MD History of Present Illness Marycarmen Gomez Hematology/Oncology consult: Evaluation and management of thrombocytopenia. Date of consultation: 10/07/2017 HPI: 77-year-old female, who noticed to have increasing bruising, epistaxis of 1 week duration, also noticed to have a new onset of hematuria of 1 day duration , she was seen by her primary-care provider in the office, blood workup done at that time showed platelet count of less than 10, she was then referred to [facility] ER for further evaluation. She denies any fever, no new cardiac or pulmonary symptoms, she says that she was ambulating quite well by herself earlier, no back pain or bone pain, no leg edema, increasing bruising involving upper and lower extremities without any injury, had also epistaxis earlier, also noticed to have blood in the urine of 1 day duration. Has some nonspecific headache which is not a new finding. REVIEW OF SYSTEMS: GENERAL: No change in weight, no weakness, no fatigue, no fever, sweats or chills. SKIN: No skin rash, extensive bruising involving the skin noted involving the upper and lower extremities as well as chest wall. HEAD: Mild headache but not persistent, no dizziness. EYES: no diplopia, she says that she had cataract surgery recently with improvement of the reason. EARS: No earache no tinnitus, NOSE: Had epistaxis recently for the last one week, No nasal discharge or stuffiness, MOUTH: No sores, no dysphagia, no hoarseness of voice, NECK: No lumps, No swelling in thyroid area. No stiffness. PULMONARY: No cough, No shortness of breath, no hemoptysis, no chest pain, No wheezing. CARDIOVASCULAR: No anginal chest pain, no PND, no orthopnea. No palpitation, no leg edema. No syncope. GASTROINTESTINAL: No abdominal pain, no nausea or vomiting. No diarrhea, No constipation. No blood in stool or black tarry stools. No abdominal distention. UROLOGIC: No burning urination. Hematuria present, she says that it is getting better in the last 12 hours after receiving the platelet transfusion. MUSCULOSKELETAL: No joint pain, No joint swelling, no muscle weakness. HEMATOLOGIC: No anemia, no bleeding disorder in the past, NEUROLOGIC: No seizures, no focal weakness, no speech difficulty, No memory disturbances. No tingling or numbness of the extremities. PSYCHIATRIC: No depression. No anxiety. No psychosis. SLEEP: No sleep disorder. Past medical and surgical history: -hypothyroidism, diabetes mellitus. Hyperlipidemia S/P hysterectomy Social history: Ex smoker, denies any ETOH abuse. She lives with significant other. Family history: Not significant Medications: Please review her chart for detailed list of medications. She did not take any medication before bruising problem. Now started her on Decadron 40 mg once a day, received 1st dose on 10/06/2017 in ER. Allergies: None On exam: - Alert and oriented x3, thin built woman, not in any distress. - HEENT: no icterus, no pallor, Throat: Normal. - Neck: No palpable cervical lymphadenopathy. - Chest: clear to auscultation. Bruising noted in the left upper anterior chest wall. - Abdomen: soft, nontender, no hepatomegaly, no splenomegaly. - No focal neuro deficit. - Extremities: no finger clubbing, no leg edema. Bruising involving the upper and lower extremities noted. Lab: -WBC 17950, H&H of 15.4/44, Platelet count of 223,000 (December,) Blood workup done on 10/06/2017 at [facility]: -WBC 9500, H&H of 12.8/37.5, MCV 102, Platelet count of less than 10,000. -LDH 389 -BUN/Creat: 21/0.9, normal liver function test. Blood workup done on 10/06/2017 (at [facility]) -WBC 20539, H&H of 13.2/38, MCV 101, Platelet count of 3000 -ESR--> 20 -BUN/Creat: 31/1.2, normal liver function test. -TSH--> 18.7, free T4 0.9. -PT 10.5, PTT 25.4 -RIC--> pending. -urinalysis shows occult blood 3+. Urine RBC more than 30 per HPI Imaging: -CT scan of the head done without intravenous contrast (10/06/2017)--> no acute changes noted, no intracranial bleed noted. Chronic small vessel changes noted. Chest x-ray done on 10/06/2017--> no acute findings noted ASSESSMENT AND PLAN: 77-year-old female, who had a normal platelet count earlier in 2011, now for the last one week noticed to have increasing bruising involving the upper and lower extremities as well as chest wall, without any local injury, blood workup shows significantly low platelet count of around 3000 , normal white blood cell count, normal hemoglobin level, normal PT and PTT, she also had epistaxis and hematuria. No recent the new medication. 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 Now started her on a high- dose steroid in the form of Decadron 40 mg once a day, received 1st dose yesterday on 10/06/2017. She also received platelet transfusion (1 unit). I would like to continue with the Decadron 40 mg once a day (IV or oral) for total 4 days and then will discontinue Decadron.. Make sure that she is on PPI therapy while on high-dose steroid therapy. He will monitor platelet count and bleeding episodes. Will consider for platelet transfusion as needed. Once her platelet count improves, she could go home and then will see her in the office for the follow-up. Thanks for the consultation. Dr. Geovanny Wyatt Hem/Onc (This note was completed using the dictation program Fluency Direct. As such, there may be misspellings, word substitutions, or other variations that should not change the essence of the clinical content of this encounter note. If there is need for further clarification, please direct questions to the provider listed above.) Past Medical/Surgical History Medical Problems: (1) Thrombocytopenia Status: Acute Family History Cancer Social History Smoking Status: Former Smoker Drug Use: none Marital Status: Housing Status: lives with significant other Occupation Status: retired Allergies Coded Allergies: No Known Allergies (Unverified , 10/06/17) Current Inpatient Medications Current Inpatient Medications Medications (Trade) Dose Ordered Sig/Latosha Route Start Time Stop Time Status Last Admin Dose Admin Sodium Chloride 1,000 ml @ 80 mls/hr [id number] IV 10/06/17 19:57 11/05/17 19:56 10/07/17 07:38 80 MLS/HR Ondansetron HCl (Zofran Inj) 4 mg Q6H PRN IV 10/06/17 20:00 11/05/17 19:59 Levothyroxine Sodium (Synthroid Tab) 150 mcg DAILYBB PO 10/07/17 06:00 11/06/17 06:59 10/07/17 05:45 150 MCG Dexamethasone Sodium Phosphate 40 mg/Dextrose 54 ml @ 50 mls/hr Q24H IV 10/07/17 09:00 11/06/17 08:59 10/07/17 07:37 50 MLS/HR Physical Exam Date Time Temp Pulse Resp B/P (MAP) Pulse Ox O2 Delivery O2 Flow Rate FiO2 10/07/17 07:40 36.4 64 18 135/83 (100) 90 Room Air 10/07/17 04:00 Room Air 10/07/17 03:44 36.4 61 20 130/72 (91) 91 Room Air 10/07/17 00:18 36.6 70 19 134/73 (93) 91 Room Air 10/06/17 23:59 Room Air 10/06/17 23:59 Room Air 10/06/17 21:20 36.7 72 18 159/84 92 Room Air 10/06/17 21:06 36.8 69 20 153/91 95 0.0 10/06/17 21:04 36.8 71 20 145/112 95 Room Air 10/06/17 20:55 36.8 71 20 145/112 95 0.0 10/06/17 18:48 74 18 137/95 93 Room Air 10/06/17 17:55 93 Room Air 10/06/17 17:55 63 18 151/81 94 Room Air 10/06/17 17:19 74 10/06/17 17:17 36.9 73 18 161/96 92 Room Air Laboratory Results Last 24 Hours Test 10/06/17 16:45 10/06/17 18:10 10/06/17 21:44 10/07/17 07:26 White Blood Count 10.18 K/uL Red Blood Count 3.73 M/uL Hemoglobin 13.2 g/dL Hematocrit 37.9 % Mean Corpuscular Volume 101.6 fL Mean Corpuscular Hemoglobin 35.4 pg Mean Corpuscular Hemoglobin Concent 34.8 g/dl Platelet Count 3 K/uL Neutrophils (%) (Auto) 58.3 % Lymphocytes (%) (Auto) 31.0 % Monocytes (%) (Auto) 8.8 % Eosinophils (%) (Auto) 1.2 % Basophils (%) (Auto) 0.4 % Neutrophils # (Auto) 5.93 K/uL Lymphocytes # (Auto) 3.16 K/uL Monocytes # (Auto) 0.90 K/uL Eosinophils # (Auto) 0.12 K/uL Basophils # (Auto) 0.04 K/uL RDW Standard Deviation 49.9 fL RDW Coefficient of Variation 13.4 % Immature Granulocyte % (Auto) 0.3 % Immature Granulocyte # (Auto) 0.03 K/uL Platelet Estimate SIGNIFIC DECREASED Erythrocyte Sedimentation Rate 20 mm/hr Prothrombin Time 10.5 SECONDS Prothromb Time International Ratio 1.0 Activated Partial Thromboplast Time 25.4 SECONDS Partial Thromboplastin Ratio 1.0 Sodium Level 139 mmol/L Potassium Level 3.9 mmol/L Chloride Level 105 mmol/L Carbon Dioxide Level 25 mmol/L Anion Gap 9.0 mmol/L Blood Urea Nitrogen 21 mg/dl Creatinine 0.90 mg/dl Est Creatinine Clear Calc Drug Dose 60.0 ml/min Estimated GFR () 72.0 Estimated GFR (Non- 62.1 BUN/Creatinine Ratio 23.7 Random Glucose 102 mg/dl Calcium Level 8.8 mg/dl Magnesium Level 2.1 mg/dl Total Bilirubin 1.2 mg/dl Direct Bilirubin 0.2 mg/dl Aspartate Amino Transf (AST/SGOT) 28 U/L Alanine Aminotransferase (ALT/SGPT) 34 U/L Alkaline Phosphatase 54 U/L Total Protein 7.6 gm/dl Albumin 4.2 gm/dl Lipase 199 U/L Thyroid Stimulating Hormone (TSH) 18.700 uIu/ml Free Thyroxine 0.93 ng/dl Urine Color RED Urine Appearance TURBID Urine pH 7.0 Urine Specific [place] 1.020 Urine Protein 2+ Urine Glucose (UA) NEG Urine Ketones NEG Urine Occult Blood 3+ Urine Nitrite NEG Urine Bilirubin NEG Urine Urobilinogen NEG Urine Leukocyte Esterase TRACE Urine RBC >30 /hpf Urine WBC 1-5 /hpf Urine Epithelial Cells 0-5 /lpf Urine Bacteria NEG
[2017-10-07 08:49] LABS: BUN/CREATININE RATIO 29.6 (10-20); CALCIUM 8.9 mg/dl (8.5-10.1); CREATININE 0.76 mg/dl (0.60-1.20)
[2017-10-07] MEDS ORDERED: DEXAMETHASONE INJ 40 MG in SYRINGE 0 ML IV SCH (09:00)
[2017-10-07 09:12] LABS: MEAN CELL VOLUME 100.3 fL (80-100); MEAN CORPUSCULAR HEMOGLOBIN 35.5 pg (25-34); MEAN CORPUSCULAR HGB CONC 35.4 g/dl (32-36); PLATELET COUNT 2 K/uL (130-400); RED BLOOD COUNT 3.49 M/uL (4.2-5.4); WHITE BLOOD COUNT 9.89 K/uL (4.8-10.8)
[2017-10-07 09:16] LABS: BASO % 0.1 %; BASO ABS # 0.01 K/uL (0-0.2); COMPLETE YES; IG% 0.3 %; LYMPH % 20.3 %; LYMPH ABS # 2.01 K/uL (1.2-3.4); MONO % 1.1 %; NEUT % 78.2 %; PLT ESTIMATE SIGNIFIC DECREASED
[2017-10-07] MEDS: CEFTRIAXONE SOD INJ 1 GM in DEXTROSE 5% ADD-VANTAGE 50ML 50 ML IV SCH (10:29)
[2017-10-07] MEDS: PANTOprazole SOD 40 MG TAB PO SCH ×2 (10:29→19:34)
--- NOTE | 2017-10-07 15:56 | Progress Note ---
Internal Med Progress Note Date of Service: Oct 07, 2017. Provider Documentation: SUBJECTIVE: says since about a week noticed bruises all over and petechial rash also had epistaxis and slight coughing up of blood feeling better today epistasis stopped no sob no pain anywhere afebrile OBJECTIVE: Vital Signs-as noted below Exam: General-alert and oriented. Not in distress ENT-Normal hearing Neck-no neck masses Lungs-CTA b/l no wheezing or crackles Heart-S1 and S2 heard. Regular rate and rhythm, no murmurs Abdomen-Soft Bowel sounds present no tenderness present no distension Extremities-no edema no erythema. Skin bruises and petechial rash seen all over Neuro-alert and awake moves extremities Lab data as noted below. ASSESSMENT & PLAN: This is a 77 year old female with a PMH of hypothyroidism, HLD presents with epistaxis, hematuria, bruising and noted to have significant thrombocytopenia Thrombocytopenia Most likely ITP prented with bruises, petechial rash and epitaxies out patient labs showed low platelets platelets 3k in Er yesterday received one unit odf platelets yesterday and iv Decadron seen by heme/onco and recommends iv decadron 50mg daily for now and follow response epistaxis stopped platelets 2k today given two more units of platelet pheresis today will f/u labs. Hypothyroidism TSH elevated, possibly due to an acute phase reaction Free t4 wnl continue Synthroid UTI on rocephin will f/u cx DVT ppx SCDs DISPOSITION To be determined Vital Signs: Date Time Temp Pulse Resp B/P (MAP) Pulse Ox O2 Delivery O2 Flow Rate FiO2 10/07/17 12:29 36.5 69 18 122/72 91 10/07/17 12:01 36.4 85 18 125/65 92 10/07/17 12:00 Room Air 10/07/17 11:46 36.5 68 18 153/71 93 10/07/17 11:25 36.3 98 18 134/70 (91) 92 Room Air 10/07/17 10:45 36.5 77 18 131/72 93 10/07/17 10:30 36.5 77 18 132/73 91 10/07/17 08:00 Room Air 10/07/17 07:40 36.4 64 18 135/83 (100) 90 Room Air 10/07/17 04:00 Room Air 10/07/17 03:44 36.4 61 20 130/72 (91) 91 Room Air 10/07/17 00:18 36.6 70 19 134/73 (93) 91 Room Air 10/06/17 23:59 Room Air 10/06/17 23:59 Room Air 10/06/17 21:20 36.7 72 18 159/84 92 Room Air 10/06/17 21:06 36.8 69 20 153/91 95 0.0 10/06/17 21:04 36.8 71 20 145/112 95 Room Air 10/06/17 20:55 36.8 71 20 145/112 95 0.0 10/06/17 18:48 74 18 137/95 93 Room Air 10/06/17 17:55 93 Room Air 10/06/17 17:55 63 18 151/81 94 Room Air 10/06/17 17:19 74 10/06/17 17:17 36.9 73 18 161/96 92 Room Air Lab Results: Results Past 24 Hours Test 10/06/17 16:45 10/06/17 18:10 10/06/17 21:44 10/07/17 07:26 Range/Units White Blood Count 10.18 9.89 4.8-10.8 K/uL Red Blood Count 3.73 3.49 4.2-5.4 M/uL Hemoglobin 13.2 12.4 12.0-16.0 g/dL Hematocrit 37.9 35.0 37-47 % Mean Corpuscular Volume 101.6 100.3 80-100 fL Mean Corpuscular Hemoglobin 35.4 35.5 25-34 pg Mean Corpuscular Hemoglobin Concent 34.8 35.4 32-36 g/dl Platelet Count 3 2 130-400 K/uL Neutrophils (%) (Auto) 58.3 78.2 % Lymphocytes (%) (Auto) 31.0 20.3 % Monocytes (%) (Auto) 8.8 1.1 % Eosinophils (%) (Auto) 1.2 0.0 % Basophils (%) (Auto) 0.4 0.1 % Neutrophils # (Auto) 5.93 7.73 1.4-6.5 K/uL Lymphocytes # (Auto) 3.16 2.01 1.2-3.4 K/uL Monocytes # (Auto) 0.90 0.11 0.11-0.59 K/uL Eosinophils # (Auto) 0.12 0.00 0-0.5 K/uL Basophils # (Auto) 0.04 0.01 0-0.2 K/uL RDW Standard Deviation 49.9 48.1 36.4-46.3 fL RDW Coefficient of Variation 13.4 13.2 11.5-14.5 % Immature Granulocyte % (Auto) 0.3 0.3 % Immature Granulocyte # (Auto) 0.03 0.03 0.00-0.02 K/uL Platelet Estimate SIGNIFIC DECREASED SIGNIFIC DECREASED Erythrocyte Sedimentation Rate 20 0-21 mm/hr Prothrombin Time 10.5 9.0-12.0 SECONDS Prothromb Time International Ratio 1.0 0.9-1.1 Activated Partial Thromboplast Time 25.4 21.0-31.0 SECONDS Partial Thromboplastin Ratio 1.0 Sodium Level 139 139 136-145 mmol/L Potassium Level 3.9 4.0 3.5-5.1 mmol/L Chloride Level 105 108 98-107 mmol/L Carbon Dioxide Level 25 21 21-32 mmol/L Anion Gap 9.0 10.0 3-11 mmol/L Blood Urea Nitrogen 21 23 7-18 mg/dl Creatinine 0.90 0.76 0.60-1.20 mg/dl Est Creatinine Clear Calc Drug Dose 60.0 69.9 ml/min Estimated GFR () 72.0 88.3 Estimated GFR (Non- 62.1 76.2 BUN/Creatinine Ratio 23.7 29.6 10-20 Random Glucose 102 151 70-99 mg/dl Calcium Level 8.8 8.9 8.5-10.1 mg/dl Magnesium Level 2.1 1.8-2.4 mg/dl Total Bilirubin 1.2 0.2-1 mg/dl Direct Bilirubin 0.2 0-0.2 mg/dl Aspartate Amino Transf (AST/SGOT) 28 15-37 U/L Alanine Aminotransferase (ALT/SGPT) 34 12-78 U/L Alkaline Phosphatase 54 45-117 U/L Total Protein 7.6 6.4-8.2 gm/dl Albumin 4.2 3.4-5.0 gm/dl Lipase 199 73-393 U/L Thyroid Stimulating Hormone (TSH) 18.700 0.300-4.500 uIu/ml Free Thyroxine 0.93 0.80-1.60 ng/dl Urine Color RED Urine Appearance TURBID CLEAR Urine pH 7.0 4.5-7.5 Urine Specific [place] 1.020 1.000-1.030 Urine Protein 2+ NEG Urine Glucose (UA) NEG NEG Urine Ketones NEG NEG Urine Occult Blood 3+ NEG Urine Nitrite NEG NEG Urine Bilirubin NEG NEG Urine Urobilinogen NEG NEG Urine Leukocyte Esterase TRACE NEG Urine RBC >30 0-4 /hpf Urine WBC 1-5 0-5 /hpf Urine Epithelial Cells 0-5 0-5 /lpf Urine Bacteria NEG NEG Microbiology Results 10/06/17 Urine Culture - Preliminary, Resulted Gram Negative Bacilli
[2017-10-07 17:21] LABS: HEMATOCRIT 32.1 % (37-47); MEAN CELL VOLUME 100.3 fL (80-100); MEAN CORPUSCULAR HEMOGLOBIN 35.6 pg (25-34); MEAN CORPUSCULAR HGB CONC 35.5 g/dl (32-36); PLATELET COUNT 4 K/uL (130-400); WHITE BLOOD COUNT 16.82 K/uL (4.8-10.8)
[2017-10-07 17:46] LABS: BASO % 0.1 %; BASO ABS # 0.01 K/uL (0-0.2); COMPLETE YES; IG% 0.2 %; LYMPH % 11.3 %; MONO % 2.5 %; NEUT % 85.9 %; PLT ESTIMATE SIGNIFIC DECREASED
[2017-10-07] MEDS: ACETAMINOPHEN 325 MG TAB PO PRN (19:33)
[2017-10-08] VITALS (15 sets, daily range): BP systolic 123–157; BP diastolic 64–84; PULSE 56–77; TEMP 36.2–37.1; O2SAT 90–96
[2017-10-08] MEDS: LEVOTHYROXINE 150 MCG TAB PO SCH (05:40)
[2017-10-08 06:45] LABS: HEMATOCRIT 30.6 % (37-47); MEAN CELL VOLUME 100.7 fL (80-100); MEAN CORPUSCULAR HEMOGLOBIN 34.5 pg (25-34); MEAN CORPUSCULAR HGB CONC 34.3 g/dl (32-36); RED BLOOD COUNT 3.04 M/uL (4.2-5.4); WHITE BLOOD COUNT 15.42 K/uL (4.8-10.8)
[2017-10-08 07:02] LABS: BUN/CREATININE RATIO 29.1 (10-20); CALCIUM 8.4 mg/dl (8.5-10.1); CREATININE 0.92 mg/dl (0.60-1.20); MAGNESIUM 2.3 mg/dl (1.8-2.4); POTASSIUM 3.9 mmol/L (3.5-5.1)
[2017-10-08 07:21] LABS: BASO % 0.1 %; BASO ABS # 0.01 K/uL (0-0.2); COMPLETE YES; IG% 0.3 %; LYMPH % 13.6 %; LYMPH ABS # 2.09 K/uL (1.2-3.4); MONO % 6.5 %; NEUT % 79.5 %; PLATELET COUNT 6 K/uL (130-400); PLT ESTIMATE SIGNIFIC DECREASED
[2017-10-08] MEDS: PANTOprazole SOD 40 MG TAB PO SCH ×2 (07:41→20:20)
[2017-10-08] MEDS: DEXAMETHASONE INJ 40 MG in DEXTROSE 5% 50ML 50 ML IV SCH (07:41)
[2017-10-08] MEDS: CEFTRIAXONE SOD INJ 1 GM in DEXTROSE 5% ADD-VANTAGE 50ML 50 ML IV SCH (09:33)
[2017-10-08] MEDS: SODIUM CHLORIDE 0.9% 1000ML 1,000 ML IV SCH (09:33)
[2017-10-08] MEDS ORDERED: IMMUNE GLOBULIN 10% IV SCH (11:00)
[2017-10-08] MEDS: ONDANSETRON INJ 2 MG/ML 2 ML VIAL IV PRN (15:21)
--- NOTE | 2017-10-08 16:24 | Hematology/Oncology Prog Note ---
Hematology/Onc Progress Note Date of Service Oct 08, 2017. Subjective I saw her bedside in the morning, she was sitting comfortably in the bed, she says that last night she had an episode of epistaxis after picking the nose, no other spontaneous bleeding, she says that her urine color has changed, no gross blood in the urine, has some bruising involving the extremities but no new bruising noted, also noticed to have UTI (urine culture grew E coli), she is receiving ceftriaxone antibiotic, no fever, hemodynamically she has remained stable. She denies any new cardiac or pulmonary symptoms. Denies any abdominal symptoms. No nausea or vomiting. No headache. No focal neurological symptoms. On exam: - Alert and oriented x3, well built woman, not in any distress. - HEENT: no icterus, no pallor, Throat: Normal. - Neck: No palpable cervical lymphadenopathy. - Chest: clear to auscultation. - Abdomen: soft, nontender, no hepatomegaly, no splenomegaly. - No focal neuro deficit. - Extremities: no finger clubbing, no leg edema. Bruising involving the extremities noted. ASSESSMENT AND PLAN: 77-year-old female, a case of acute ITP with significantly low platelet count with multiple bruising involving the extremities. So far she has received high-dose Decadron at 40 mg once a day (started on 09/05, so far she received 3 doses), platelet count has remained on the lower side around [id number]. She also received 4 units of PRBC as of today morning. Clinically she is doing somewhat better, no new significant bleeding complications. Hematuria has improved, also receiving IV ceftriaxone for E coli UTI. I would like to proceed with intravenous immunoglobulin at 1 gram/kilogram x1 today. I spoke with the hospitalist regarding IVIG therapy in her case. Also she will receive 1 unit of platelet transfusion today. Will see how she does with high-dose Decadron and IVIG therapy and platelet transfusion. If her platelet count continues to go up tomorrow, she will not need additional IVIG at this time. Will follow up. Dr. Geovanny Wyatt Hem/Onc (This note was completed using the dictation program Fluency Direct. As such, there may be misspellings, word substitutions, or other variations that should not change the essence of the clinical content of this encounter note. If there is need for further clarification, please direct questions to the provider listed above.) Vital Signs Vital Signs Past 12 Hours Date Time Temp Pulse Resp B/P (MAP) Pulse Ox O2 Delivery O2 Flow Rate FiO2 10/08/17 13:56 36.6 77 18 148/78 (101) 93 10/08/17 13:24 36.5 68 18 150/78 (102) 93 10/08/17 13:00 36.6 69 18 137/84 (101) 93 10/08/17 12:30 Room Air 10/08/17 12:17 36.4 67 18 135/70 93 10/08/17 11:32 36.6 62 18 134/70 94 10/08/17 11:02 36.2 56 18 132/64 96 10/08/17 10:42 36.7 60 18 128/71 93 10/08/17 08:00 Room Air 10/08/17 07:27 36.8 59 20 140/84 (102) 96 Room Air
--- NOTE | 2017-10-08 17:03 | Progress Note ---
Internal Med Progress Note Date of Service: Oct 08, 2017. Provider Documentation: SUBJECTIVE: says last night had an episode of epistaxis but stopped now afebrile appetite ok no blood in stools resting comfortably OBJECTIVE: Vital Signs-as noted below Exam: General-alert and oriented. Not in distress ENT-Normal hearing Neck-no neck masses Lungs-CTA b/l no wheezing or crackles Heart-S1 and S2 heard. Regular rate and rhythm, no murmurs Abdomen-Soft Bowel sounds present no tenderness present no distension Extremities-no edema no erythema. Skin bruises and petechial rash seen all over Neuro-alert and awake moves extremities Lab data as noted below. 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, petechial rash and epitaxies out patient labs showed low platelets platelets 3k in Er even after receiving 5units of plateletpheresis and 3 days of iv Decadron platelets still 6k today Heme/oncology recommending to give ivIG today and one more unit of platelets and complete 4 days of iv Decadron will f/u labs in am Hypothyroidism TSH elevated, possibly due to an acute phase reaction Free t4 wnl continue Synthroid UTI on rocephin x 2 rosario sensitive e.coli DVT ppx SCDs DISPOSITION To be determined Vital Signs: Date Time Temp Pulse Resp B/P (MAP) Pulse Ox O2 Delivery O2 Flow Rate FiO2 10/08/17 16:25 36.6 56 19 157/79 (105) 91 Room Air 10/08/17 15:46 36.6 60 18 142/76 (98) 92 Room Air 10/08/17 13:56 36.6 77 18 148/78 (101) 93 10/08/17 13:24 36.5 68 18 150/78 (102) 93 10/08/17 13:00 36.6 69 18 137/84 (101) 93 10/08/17 12:30 Room Air 10/08/17 12:17 36.4 67 18 135/70 93 10/08/17 11:32 36.6 62 18 134/70 94 10/08/17 11:02 36.2 56 18 132/64 96 10/08/17 10:42 36.7 60 18 128/71 93 10/08/17 08:00 Room Air 10/08/17 07:27 36.8 59 20 140/84 (102) 96 Room Air 10/08/17 04:02 36.6 61 19 123/68 (86) 95 Room Air 10/08/17 04:00 95 Room Air 10/08/17 00:00 96 Room Air 10/07/17 22:47 36.5 103 19 126/72 (90) 96 Room Air 10/07/17 20:00 Room Air 10/07/17 19:35 36.7 71 18 112/57 94 10/07/17 19:05 36.6 77 18 130/69 93 10/07/17 18:49 36.8 77 18 122/62 94 Lab Results: Results Past 24 Hours Test 10/07/17 16:53 10/08/17 06:07 Range/Units White Blood Count 16.82 15.42 4.8-10.8 K/uL Red Blood Count 3.20 3.04 4.2-5.4 M/uL Hemoglobin 11.4 10.5 12.0-16.0 g/dL Hematocrit 32.1 30.6 37-47 % Mean Corpuscular Volume 100.3 100.7 80-100 fL Mean Corpuscular Hemoglobin 35.6 34.5 25-34 pg Mean Corpuscular Hemoglobin Concent 35.5 34.3 32-36 g/dl Platelet Count 4 6 130-400 K/uL Neutrophils (%) (Auto) 85.9 79.5 % Lymphocytes (%) (Auto) 11.3 13.6 % Monocytes (%) (Auto) 2.5 6.5 % Eosinophils (%) (Auto) 0.0 0.0 % Basophils (%) (Auto) 0.1 0.1 % Neutrophils # (Auto) 14.45 12.27 1.4-6.5 K/uL Lymphocytes # (Auto) 1.90 2.09 1.2-3.4 K/uL Monocytes # (Auto) 0.42 1.00 0.11-0.59 K/uL Eosinophils # (Auto) 0.00 0.00 0-0.5 K/uL Basophils # (Auto) 0.01 0.01 0-0.2 K/uL RDW Standard Deviation 48.2 49.4 36.4-46.3 fL RDW Coefficient of Variation 13.2 13.6 11.5-14.5 % Immature Granulocyte % (Auto) 0.2 0.3 % Immature Granulocyte # (Auto) 0.04 0.05 0.00-0.02 K/uL Platelet Estimate SIGNIFIC DECREASED SIGNIFIC DECREASED Sodium Level 141 136-145 mmol/L Potassium Level 3.9 3.5-5.1 mmol/L Chloride Level 111 98-107 mmol/L Carbon Dioxide Level 20 21-32 mmol/L Anion Gap 10.0 3-11 mmol/L Blood Urea Nitrogen 27 7-18 mg/dl Creatinine 0.92 0.60-1.20 mg/dl Est Creatinine Clear Calc Drug Dose 58.1 ml/min Estimated GFR () 70.1 Estimated GFR (Non- 60.5 BUN/Creatinine Ratio 29.1 10-20 Random Glucose 136 70-99 mg/dl Calcium Level 8.4 8.5-10.1 mg/dl Magnesium Level 2.3 1.8-2.4 mg/dl
[2017-10-09] VITALS (10 sets, daily range): BP systolic 128–179; BP diastolic 65–94; PULSE 58–71; TEMP 36.4–36.6; O2SAT 83–97
[2017-10-09] MEDS: SODIUM CHLORIDE 0.9% 1000ML 1,000 ML IV SCH (00:44)
[2017-10-09] MEDS ORDERED: NURSING VERBAL MED ORDER ONE (04:00)
[2017-10-09] MEDS: LEVOTHYROXINE 150 MCG TAB PO SCH (06:07)
[2017-10-09 07:38] LABS: BUN/CREATININE RATIO 27.3 (10-20); CALCIUM 8.1 mg/dl (8.5-10.1); CREATININE 1.06 mg/dl (0.60-1.20); MAGNESIUM 2.2 mg/dl (1.8-2.4); POTASSIUM 3.9 mmol/L (3.5-5.1)
[2017-10-09] MEDS: PANTOprazole SOD 40 MG TAB PO SCH ×2 (08:02→21:19)
[2017-10-09 08:12] LABS: COMPLETE YES; HEMATOCRIT 30.7 % (37-47); IG% 0.4 %; LYMPH % 14.6 %; LYMPH ABS # 1.59 K/uL (1.2-3.4); MEAN CELL VOLUME 104.1 fL (80-100); MEAN CORPUSCULAR HEMOGLOBIN 35.6 pg (25-34); MEAN CORPUSCULAR HGB CONC 34.2 g/dl (32-36); MONO % 7.1 %; NEUT % 77.9 %; PLATELET COUNT 12 K/uL (130-400); RED BLOOD COUNT 2.95 M/uL (4.2-5.4); WHITE BLOOD COUNT 10.91 K/uL (4.8-10.8)
[2017-10-09] MEDS: DEXAMETHASONE INJ 40 MG in DEXTROSE 5% 50ML 50 ML IV SCH (09:43)
[2017-10-09] MEDS: CEFTRIAXONE SOD INJ 1 GM in DEXTROSE 5% ADD-VANTAGE 50ML 50 ML IV SCH (11:06)
[2017-10-09 18:36] LABS: LYME DISEASE AB IGG NEG (NEG); LYME DISEASE AB IGM NEG (NEG)
[2017-10-10] VITALS (8 sets, daily range): BP systolic 153–172; BP diastolic 76–85; PULSE 57–76; TEMP 36.4–37; O2SAT 90–95
[2017-10-10] MEDS: LEVOTHYROXINE 150 MCG TAB PO SCH (06:15)
[2017-10-10 07:09] LABS: BUN/CREATININE RATIO 29.8 (10-20); CALCIUM 8.5 mg/dl (8.5-10.1); CREATININE 0.97 mg/dl (0.60-1.20); MAGNESIUM 2.4 mg/dl (1.8-2.4)
[2017-10-10 07:24] LABS: BASO % 0.1 %; BASO ABS # 0.01 K/uL (0-0.2); COMPLETE YES; HEMATOCRIT 30.7 % (37-47); IG% 1.3 %; LYMPH % 22.8 %; LYMPH ABS # 1.98 K/uL (1.2-3.4); MEAN CORPUSCULAR HEMOGLOBIN 34.9 pg (25-34); MEAN CORPUSCULAR HGB CONC 33.9 g/dl (32-36); MONO % 9.9 %; NEUT % 65.9 %; PLATELET COUNT 7 K/uL (130-400); RED BLOOD COUNT 2.98 M/uL (4.2-5.4); WHITE BLOOD COUNT 8.67 K/uL (4.8-10.8)
[2017-10-10] MEDS: PANTOprazole SOD 40 MG TAB PO SCH ×2 (08:03→20:41)
[2017-10-10] MEDS: CEFTRIAXONE SOD INJ 1 GM in DEXTROSE 5% ADD-VANTAGE 50ML 50 ML IV SCH (10:37)
[2017-10-10] MEDS ORDERED: FUROSEMIDE INJ 20 MG in SYRINGE 0 ML IV ONE (11:15)
--- NOTE | 2017-10-10 11:35 | ECHOCARDIOGRAM REPORT ---
*NOTICE TO RECEIVING [facility] This information is strictly Confidential and protected under [place] law. [place] law prohibits you from making any further disclosure of this information unless further disclosure is expressly permitted by the written consent of the person to whom it pertains or is authorized by law. A general authorization for the release of medical or other information is not sufficient for this purpose. Hospital accepts no responsibility if the information is made available to any other person, INCLUDING THE PATIENT. Interpretation Summary * Name: CARTER CARLISLE Study Date: 10/10/2017 07:12 AM BP: 153/77 mmHg * Patient Location: C.2T\S\S238\S\2 HR: 65 * : 1940 (M/d/yyyy) Gender: Female Height: 68 in * Age: 77 yrs Ethnicity: CA Weight: 183 lb * Ordering Physician: Yuri Baptiste * Referring Physician: Radha Hitchcock * Performed By: Sloane Perera RCS * * Reason For Study: ABNORMAL EKG * BSA: 2.0 m2 * -- Conclusions -- * The left ventricle is normal in size. * Left ventricular systolic function is normal. * Ejection Fraction = 55-60%. * The right ventricular systolic function is normal. * The left atrial size is normal. * Right atrial size is normal. * There is moderate to severe mitral regurgitation. * There is severe tricuspid regurgitation. Procedure Details * A complete two-dimensional transthoracic echocardiogram was performed (2D, M-mode, Doppler and color flow Doppler). Left Ventricle * The left ventricle is normal in size. * There is mild concentric left ventricular hypertrophy. * Left ventricular systolic function is normal. * Ejection Fraction = 55-60%. * The left ventricular wall motion is normal at rest. Right Ventricle * The right ventricle is normal size. * The right ventricular systolic function is normal. Atria * The left atrial size is normal. * Right atrial size is normal. * The interatrial septum is intact with no evidence for an atrial septal defect. Mitral Valve * The mitral valve leaflets appear thickened, but open well. * There is moderate to severe mitral regurgitation. Tricuspid Valve * The tricuspid valve anatomy is normal. * There is severe tricuspid regurgitation. Aortic Valve * The aortic valve is normal in structure and function. Pulmonic Valve * The pulmonic valve is not well visualized. * There is no significant pulmonary regurgitation. Pericardium/Pleural * Small pericardial effusion. MMode 2D Measurements and Calculations IVSd 1.1 cm IVSs 1.5 cm LVIDd 4.8 cm LVIDs 3.7 cm LVPWd 1.2 cm LVPWs 1.3 cm IVS/LVPW 0.91 FS 23.3 % EDV(Teich) 109.2 ml ESV(Teich) 58.3 ml EF(Teich) 46.6 % EDV(cubed) 112.9 ml ESV(cubed) 50.8 ml EF(cubed) 55.0 % % IVS thick 40.4 % % LVPW thick 7.6 % LV mass(C)d 203.3 grams LV mass(C)dI 103.3 grams/m\S\2 LV mass(C)s 185.5 grams LV mass(C)sI 94.2 grams/m\S\2 SV(Teich) 50.9 ml SI(Teich) 25.9 ml/m\S\2 SV(cubed) 62.0 ml SI(cubed) 31.5 ml/m\S\2 Ao root diam 2.7 cm Ao root area 5.8 cm\S\2 LA dimension 3.8 cm LA/Ao 1.4 LVOT diam 1.9 cm LVOT area 3.0 cm\S\2 LVAd ap4 32.9 cm\S\2 LVLd ap4 7.7 cm EDV(MOD-sp4) 116.3 ml EDV(sp4-el) 119.1 ml LVAs ap4 19.7 cm\S\2 LVLs ap4 6.0 cm ESV(MOD-sp4) 54.5 ml ESV(sp4-el) 54.6 ml EF(MOD-sp4) 53.1 % EF(sp4-el) 54.2 % LVAd ap2 33.0 cm\S\2 LVLd ap2 7.6 cm EDV(MOD-sp2) 116.3 ml EDV(sp2-el) 121.2 ml LVAs ap2 19.6 cm\S\2 LVLs ap2 6.4 cm ESV(MOD-sp2) 48.9 ml ESV(sp2-el) 50.7 ml EF(MOD-sp2) 58.0 % EF(sp2-el) 58.2 % LVLd %diff -0.99 % EDV(MOD-bp) 117.3 ml LVLs %diff 6.1 % ESV(MOD-bp) 53.3 ml EF(MOD-bp) 54.6 % SV(MOD-sp4) 61.8 ml SI(MOD-sp4) 31.4 ml/m\S\2 SV(MOD-sp2) 67.4 ml SI(MOD-sp2) 34.3 ml/m\S\2 SV(MOD-bp) 64.0 ml SI(MOD-bp) 32.5 ml/m\S\2 SV(sp4-el) 64.5 ml SI(sp4-el) 32.8 ml/m\S\2 SV(sp2-el) 70.5 ml SI(sp2-el) 35.8 ml/m\S\2 Doppler Measurements and Calculations MV E max domi 96.0 cm/sec MV A max domi 91.7 cm/sec MV E/A 1.0 MV P1/2t max domi 89.5 cm/sec MV P1/2t 69.6 msec MVA(P1/2t) 3.2 cm\S\2 MV dec slope 376.8 cm/sec\S\2 MV dec time 0.14 sec PA V2 max 78.1 cm/sec PA max PG 2.4 mmHg PI max domi 179.5 cm/sec PI max PG 12.9 mmHg PI dec slope 169.8 cm/sec\S\2 PI P1/2t 309.6 msec TR max domi 305.2 cm/sec
--- NOTE | 2017-10-10 11:38 | DIAGNOSTIC IMAGING REPORT ---
ABDOMEN LIMITED (US) HISTORY: Thrombocytopenia. Hepatosplenomegaly. to check liver and spleen. thrombocytopenia. COMPARISON: None. FINDINGS: Pancreas: The pancreas demonstrates a normal echotexture. Liver: Uniform echogenicity. Maximum dimension 16.5 cm. Gallbladder: Gallstone filled gallbladder. 2 mm wall thickness. No pericholecystic fluid. CBD: 5 mm Spleen: 8 cm maximum dimension. Uniform echogenicity. IMPRESSION: 1. Gallstones within the gallbladder. 2. Normal caliber bile duct. 3.. Normal liver and spleen The above report was generated using voice recognition software. It may contain grammatical, syntax or spelling errors. Electronically signed by: Florencio Barrera M.D. 10/10/2017 11:37 AM Dictated Date/Time: 10/10/2017 11:35 AM
--- NOTE | 2017-10-10 17:44 | Hematology/Oncology Prog Note ---
Hematology/Onc Progress Note Date of Service Oct 10, 2017. 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 Hemodynamically she has remained stable other than required oxygen therapy at 2 L/min. On exam: - Alert and oriented x3, well built woman, not in any distress. - HEENT: no icterus, no pallor, Throat: Normal. - Neck: No palpable cervical lymphadenopathy. - Chest: clear to auscultation. - Abdomen: soft, nontender, no hepatomegaly, no splenomegaly. - No focal neuro deficit. - Extremities: no finger clubbing, no leg edema. Bruising involving the extremities present. Echocardiogram done on 10/10/2017 showed left ventricular ejection fraction is around 55-60%. Severe tricuspid regurgitation and moderate to severe mitral regurgitation noted. Blood workup done on 10/10/2017: -WBC 8600, H&H of 10.4/30.7, MCV 103, Platelet count of 7000. -BUN/Creat: 29/0.9, calcium 8.5. Ultrasound of the abdomen done on 10/10/2017 showed normal liver and spleen, no splenomegaly noted, gallstones within the gallbladder present. Her platelet count has remained on the lower side around 7000, it was around 12, 000 yesterday. No new bleeding complications. She will receive 2nd dose of IVIG today (1 gram/kilogram). Will repeat blood workup tomorrow morning. If she has persistent thrombocytopenia in the next few days, will consider for bone marrow examination for further evaluation. Dr. Geovanny Wyatt Hem/Onc (This note was completed using the dictation program Fluency Direct. As such, there may be misspellings, word substitutions, or other variations that should not change the essence of the clinical content of this encounter note. If there is need for further clarification, please direct questions to the provider listed above.) Vital Signs Vital Signs Past 12 Hours Date Time Temp Pulse Resp B/P (MAP) Pulse Ox O2 Delivery O2 Flow Rate FiO2 10/10/17 16:00 Nasal Cannula 2.0 10/10/17 15:53 36.7 70 18 154/77 (102) 92 Nasal Cannula 3.0 10/10/17 12:00 Nasal Cannula 2.0 10/10/17 11:43 36.6 60 20 163/76 (105) 90 Nasal Cannula 2.5 10/10/17 08:00 95 Nasal Cannula 2.0 10/10/17 07:58 37.0 57 20 172/83 (112) 93 Nasal Cannula
--- NOTE | 2017-10-10 18:00 | Progress Note ---
Internal Med Progress Note Date of Service: Oct 09, 2017. Provider Documentation: SUBJECTIVE: no bleeding episodes no sob no nausea afebrile eating fine no complaints OBJECTIVE: Vital Signs-as noted below Exam: General-alert and oriented. Not in distress ENT-Normal hearing Neck-no neck masses Lungs-CTA b/l no wheezing or crackles Heart-S1 and S2 heard. Regular rate and rhythm, no murmurs Abdomen-Soft Bowel sounds present no tenderness present no distension Extremities-no edema no erythema. Skin bruises and petechial rash seen all over Neuro-alert and awake moves extremities Lab data as noted below. 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, petechial rash and epitaxies out patient labs showed low platelets platelets 3k in Er received 5units of plateletpheresis and 4 days of iv Decadron and one dose of ivIG on 10/08/17 platelets today 12k will f/u labs in am Hypothyroidism TSH elevated, possibly due to an acute phase reaction Free t4 wnl continue Synthroid UTI on rocephin x3 rosario sensitive e.coli DVT ppx SCDs DISPOSITION To be determined Vital Signs: Date Time Temp Pulse Resp B/P (MAP) Pulse Ox O2 Delivery O2 Flow Rate FiO2 10/10/17 16:00 Nasal Cannula 2.0 10/10/17 15:53 36.7 70 18 154/77 (102) 92 Nasal Cannula 3.0 10/10/17 12:00 Nasal Cannula 2.0 10/10/17 11:43 36.6 60 20 163/76 (105) 90 Nasal Cannula 2.5 10/10/17 08:00 95 Nasal Cannula 2.0 10/10/17 07:58 37.0 57 20 172/83 (112) 93 Nasal Cannula 10/10/17 04:00 95 Nasal Cannula 2.0 10/10/17 03:39 36.7 76 19 153/77 (102) 95 Nasal Cannula 3.0 10/10/17 00:00 36.4 63 20 155/85 (108) 92 Nasal Cannula 2.0 10/09/17 23:56 92 Nasal Cannula 2.0 10/09/17 20:00 Nasal Cannula 2.0 10/09/17 19:34 36.6 71 22 157/75 (102) 91 Nasal Cannula 2.0 Lab Results: Results Past 24 Hours Test 10/10/17 05:50 Range/Units White Blood Count 8.67 4.8-10.8 K/uL Red Blood Count 2.98 4.2-5.4 M/uL Hemoglobin 10.4 12.0-16.0 g/dL Hematocrit 30.7 37-47 % Mean Corpuscular Volume 103.0 80-100 fL Mean Corpuscular Hemoglobin 34.9 25-34 pg Mean Corpuscular Hemoglobin Concent 33.9 32-36 g/dl Platelet Count 7 130-400 K/uL Neutrophils (%) (Auto) 65.9 % Lymphocytes (%) (Auto) 22.8 % Monocytes (%) (Auto) 9.9 % Eosinophils (%) (Auto) 0.0 % Basophils (%) (Auto) 0.1 % Neutrophils # (Auto) 5.71 1.4-6.5 K/uL Lymphocytes # (Auto) 1.98 1.2-3.4 K/uL Monocytes # (Auto) 0.86 0.11-0.59 K/uL Eosinophils # (Auto) 0.00 0-0.5 K/uL Basophils # (Auto) 0.01 0-0.2 K/uL RDW Standard Deviation 52.5 36.4-46.3 fL RDW Coefficient of Variation 14.1 11.5-14.5 % Immature Granulocyte % (Auto) 1.3 % Immature Granulocyte # (Auto) 0.11 0.00-0.02 K/uL Nucleated RBC Absolute Count (auto) 0.07 0-0 K/uL Nucleated Red Blood Cells % 0.8 % Sodium Level 140 136-145 mmol/L Potassium Level 4.0 3.5-5.1 mmol/L Chloride Level 108 98-107 mmol/L Carbon Dioxide Level 25 21-32 mmol/L Anion Gap 7.0 3-11 mmol/L Blood Urea Nitrogen 29 7-18 mg/dl Creatinine 0.97 0.60-1.20 mg/dl Est Creatinine Clear Calc Drug Dose 55.4 ml/min Estimated GFR () 65.8 Estimated GFR (Non- 56.7 BUN/Creatinine Ratio 29.8 10-20 Random Glucose 142 70-99 mg/dl Calcium Level 8.5 8.5-10.1 mg/dl Magnesium Level 2.4 1.8-2.4 mg/dl Troponin I 0.090 0-0.045 ng/ml
--- NOTE | 2017-10-10 18:05 | Progress Note ---
Internal Med Progress Note Date of Service: Oct 10, 2017. Provider Documentation: SUBJECTIVE: no more epistaxis no sob afebrile eating fine denies any blood in stools OBJECTIVE: Vital Signs-as noted below Exam: General-alert and oriented. Not in distress ENT-Normal hearing Neck-no neck masses Lungs-CTA b/l no wheezing or crackles Heart-S1 and S2 heard. Regular rate and rhythm, no murmurs Abdomen-Soft Bowel sounds present no tenderness present no distension Extremities-no edema no erythema. Skin bruises and petechial rash seen all over Neuro-alert and awake moves extremities Lab data as noted below. 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, petechial rash and epitaxies out patient labs showed low platelets platelets 3k in Er received 5units of plateletpheresis and 4 days of iv Decadron and one dose of ivIG on 10/08/17 platelets were 12k yesterday but again dropped to 7k today to give one more dose of ivIG today and f/u labs in am Hypothyroidism TSH elevated, possibly due to an acute phase reaction Free t4 wnl continue Synthroid UTI on rocephin x4 rosario sensitive e.coli DVT ppx SCDs DISPOSITION To be determined Vital Signs: Date Time Temp Pulse Resp B/P (MAP) Pulse Ox O2 Delivery O2 Flow Rate FiO2 10/10/17 16:00 Nasal Cannula 2.0 10/10/17 15:53 36.7 70 18 154/77 (102) 92 Nasal Cannula 3.0 10/10/17 12:00 Nasal Cannula 2.0 10/10/17 11:43 36.6 60 20 163/76 (105) 90 Nasal Cannula 2.5 10/10/17 08:00 95 Nasal Cannula 2.0 10/10/17 07:58 37.0 57 20 172/83 (112) 93 Nasal Cannula 10/10/17 04:00 95 Nasal Cannula 2.0 10/10/17 03:39 36.7 76 19 153/77 (102) 95 Nasal Cannula 3.0 10/10/17 00:00 36.4 63 20 155/85 (108) 92 Nasal Cannula 2.0 10/09/17 23:56 92 Nasal Cannula 2.0 10/09/17 20:00 Nasal Cannula 2.0 10/09/17 19:34 36.6 71 22 157/75 (102) 91 Nasal Cannula 2.0 Lab Results: Results Past 24 Hours Test 10/10/17 05:50 Range/Units White Blood Count 8.67 4.8-10.8 K/uL Red Blood Count 2.98 4.2-5.4 M/uL Hemoglobin 10.4 12.0-16.0 g/dL Hematocrit 30.7 37-47 % Mean Corpuscular Volume 103.0 80-100 fL Mean Corpuscular Hemoglobin 34.9 25-34 pg Mean Corpuscular Hemoglobin Concent 33.9 32-36 g/dl Platelet Count 7 130-400 K/uL Neutrophils (%) (Auto) 65.9 % Lymphocytes (%) (Auto) 22.8 % Monocytes (%) (Auto) 9.9 % Eosinophils (%) (Auto) 0.0 % Basophils (%) (Auto) 0.1 % Neutrophils # (Auto) 5.71 1.4-6.5 K/uL Lymphocytes # (Auto) 1.98 1.2-3.4 K/uL Monocytes # (Auto) 0.86 0.11-0.59 K/uL Eosinophils # (Auto) 0.00 0-0.5 K/uL Basophils # (Auto) 0.01 0-0.2 K/uL RDW Standard Deviation 52.5 36.4-46.3 fL RDW Coefficient of Variation 14.1 11.5-14.5 % Immature Granulocyte % (Auto) 1.3 % Immature Granulocyte # (Auto) 0.11 0.00-0.02 K/uL Nucleated RBC Absolute Count (auto) 0.07 0-0 K/uL Nucleated Red Blood Cells % 0.8 % Sodium Level 140 136-145 mmol/L Potassium Level 4.0 3.5-5.1 mmol/L Chloride Level 108 98-107 mmol/L Carbon Dioxide Level 25 21-32 mmol/L Anion Gap 7.0 3-11 mmol/L Blood Urea Nitrogen 29 7-18 mg/dl Creatinine 0.97 0.60-1.20 mg/dl Est Creatinine Clear Calc Drug Dose 55.4 ml/min Estimated GFR () 65.8 Estimated GFR (Non- 56.7 BUN/Creatinine Ratio 29.8 10-20 Random Glucose 142 70-99 mg/dl Calcium Level 8.5 8.5-10.1 mg/dl Magnesium Level 2.4 1.8-2.4 mg/dl Troponin I 0.090 0-0.045 ng/ml
[2017-10-10] MEDS: ACETAMINOPHEN 325 MG TAB PO PRN (20:02)
[2017-10-11 00:15] VITALS: BP 146/74; PULSE 60; TEMP 36.8; O2SAT 95
[2017-10-11] MEDS: ACETAMINOPHEN 325 MG TAB PO PRN ×2 (03:21→20:09)
[2017-10-11 04:45] VITALS: BP 154/82; PULSE 64; TEMP 36.7; O2SAT 95
[2017-10-11] MEDS: LEVOTHYROXINE 150 MCG TAB PO SCH (05:58)
[2017-10-11 06:33] LABS: LUPUS ANTICOAGULANT** TC36573X Negative (Negative)
[2017-10-11 07:08] VITALS: BP 163/85; PULSE 69; TEMP 36.7; O2SAT 94
[2017-10-11 08:13] LABS: CALCIUM 8.1 mg/dl (8.5-10.1); MAGNESIUM 2.1 mg/dl (1.8-2.4); POTASSIUM 3.1 mmol/L (3.5-5.1)
[2017-10-11 08:15] LABS: MEAN CELL VOLUME 102.2 fL (80-100); MEAN CORPUSCULAR HEMOGLOBIN 35.1 pg (25-34); MEAN CORPUSCULAR HGB CONC 34.4 g/dl (32-36); PLATELET COUNT 17 K/uL (130-400); RED BLOOD COUNT 3.13 M/uL (4.2-5.4); WHITE BLOOD COUNT 8.25 K/uL (4.8-10.8)
[2017-10-11 08:17] LABS: BASO % 0.1 %; BASO ABS # 0.01 K/uL (0-0.2); COMPLETE YES; EOS % 0.5 %; IG% 0.7 %; LYMPH % 32.6 %; LYMPH ABS # 2.69 K/uL (1.2-3.4); NEUT % 57.1 %; PLT ESTIMATE SIGNIFIC DECREASED
[2017-10-11] MEDS: CEFTRIAXONE SOD INJ 1 GM in DEXTROSE 5% ADD-VANTAGE 50ML 50 ML IV SCH (08:24)
[2017-10-11] MEDS: PANTOprazole SOD 40 MG TAB PO SCH ×2 (08:24→20:10)
[2017-10-11 11:37] VITALS: BP 152/78; PULSE 75; TEMP 37.7; O2SAT 94
[2017-10-11] MEDS ORDERED: POTASSIUM CHLORIDE 20 MEQ TABCR PO ONE (13:00)
[2017-10-11 13:56] VITALS: BP 170/84; PULSE 62; TEMP 36.5; O2SAT 96
[2017-10-11 15:33] VITALS: BP 124/73; PULSE 81; TEMP 37; O2SAT 95
--- NOTE | 2017-10-11 18:05 | Progress Note ---
Internal Med Progress Note Date of Service: Oct 11, 2017. Provider Documentation: SUBJECTIVE: resting comfortably 'afebrile eating ok no nausea did not ambulate well OBJECTIVE: Vital Signs-as noted below Exam: General-alert and oriented. Not in distress ENT-Normal hearing Neck-no neck masses Lungs-CTA b/l no wheezing or crackles Heart-S1 and S2 heard. Regular rate and rhythm, no murmurs Abdomen-Soft Bowel sounds present no tenderness present no distension Extremities-no edema no erythema. Skin bruises and petechial rash seen all over Neuro-alert and awake moves extremities Lab data as noted below. 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, petechial rash and epitaxies out patient labs showed low platelets platelets 3k in Er received 5units of plateletpheresis and 4 days of iv Decadron and one dose of ivIG on 10/08/17 platelets were 12k yesterday but again dropped to 7k today received one more dose of ivIG 10/10 platelets 17K today f/u labs Hypothyroidism TSH elevated, possibly due to an acute phase reaction Free t4 wnl continue Synthroid UTI on rocephin x5 rosario sensitive e.coli will change to po cefuroxime and complete one week course Weak ambulatory dysfunction pt/ot DVT ppx SCDs DISPOSITION pt/ot holding discharge for ambulatory status to be determined Vital Signs: Date Time Temp Pulse Resp B/P (MAP) Pulse Ox O2 Delivery O2 Flow Rate FiO2 10/11/17 16:00 Nasal Cannula 2.0 10/11/17 15:33 37.0 81 18 124/73 (90) 95 Nasal Cannula 2.0 10/11/17 13:56 36.5 62 20 170/84 (112) 96 Nasal Cannula 2.0 10/11/17 12:00 Nasal Cannula 2.0 10/11/17 11:37 37.7 75 18 152/78 (102) 94 Nasal Cannula 2.0 10/11/17 08:00 Nasal Cannula 2.0 10/11/17 07:08 36.7 69 22 163/85 (111) 94 Nasal Cannula 2.0 10/11/17 04:45 36.7 64 17 154/82 (106) 95 Nasal Cannula 2.0 10/11/17 04:00 Nasal Cannula 10/11/17 00:15 36.8 60 18 146/74 (98) 95 Nasal Cannula 2.0 10/11/17 00:01 Nasal Cannula 10/10/17 20:27 36.8 70 16 159/82 (107) 94 Nasal Cannula 3.0 10/10/17 20:00 Nasal Cannula Lab Results: Results Past 24 Hours Test 10/11/17 07:23 Range/Units White Blood Count 8.25 4.8-10.8 K/uL Red Blood Count 3.13 4.2-5.4 M/uL Hemoglobin 11.0 12.0-16.0 g/dL Hematocrit 32.0 37-47 % Mean Corpuscular Volume 102.2 80-100 fL Mean Corpuscular Hemoglobin 35.1 25-34 pg Mean Corpuscular Hemoglobin Concent 34.4 32-36 g/dl Platelet Count 17 130-400 K/uL Neutrophils (%) (Auto) 57.1 % Lymphocytes (%) (Auto) 32.6 % Monocytes (%) (Auto) 9.0 % Eosinophils (%) (Auto) 0.5 % Basophils (%) (Auto) 0.1 % Neutrophils # (Auto) 4.71 1.4-6.5 K/uL Lymphocytes # (Auto) 2.69 1.2-3.4 K/uL Monocytes # (Auto) 0.74 0.11-0.59 K/uL Eosinophils # (Auto) 0.04 0-0.5 K/uL Basophils # (Auto) 0.01 0-0.2 K/uL RDW Standard Deviation 50.8 36.4-46.3 fL RDW Coefficient of Variation 13.7 11.5-14.5 % Immature Granulocyte % (Auto) 0.7 % Immature Granulocyte # (Auto) 0.06 0.00-0.02 K/uL Nucleated RBC Absolute Count (auto) 0.19 0-0 K/uL Nucleated Red Blood Cells % 2.3 % Platelet Estimate SIGNIFIC DECREASED Red Blood Cell Morphology Unremarkable Sodium Level 138 136-145 mmol/L Potassium Level 3.1 3.5-5.1 mmol/L Chloride Level 105 98-107 mmol/L Carbon Dioxide Level 26 21-32 mmol/L Anion Gap 7.0 3-11 mmol/L Blood Urea Nitrogen 30 7-18 mg/dl Creatinine 1.00 0.60-1.20 mg/dl Est Creatinine Clear Calc Drug Dose 53.5 ml/min Estimated GFR () 63.4 Estimated GFR (Non- 54.7 BUN/Creatinine Ratio 30.0 10-20 Random Glucose 91 70-99 mg/dl Calcium Level 8.1 8.5-10.1 mg/dl Magnesium Level 2.1 1.8-2.4 mg/dl
[2017-10-12 00:18] VITALS: BP 154/84; PULSE 62; TEMP 36.5; O2SAT 92
[2017-10-12] MEDS: LEVOTHYROXINE 150 MCG TAB PO SCH (06:09)
[2017-10-12 07:24] LABS: BUN/CREATININE RATIO 27.2 (10-20); CALCIUM 7.8 mg/dl (8.5-10.1); CREATININE 0.92 mg/dl (0.60-1.20); MAGNESIUM 2.1 mg/dl (1.8-2.4); POTASSIUM 3.6 mmol/L (3.5-5.1)
[2017-10-12 07:36] LABS: BASO % 0.1 %; BASO ABS # 0.01 K/uL (0-0.2); COMPLETE YES; EOS % 2.2 %; HEMATOCRIT 32.5 % (37-47); IG% 0.5 %; LYMPH % 42.5 %; LYMPH ABS # 3.21 K/uL (1.2-3.4); MEAN CELL VOLUME 102.8 fL (80-100); MEAN CORPUSCULAR HEMOGLOBIN 34.8 pg (25-34); MEAN CORPUSCULAR HGB CONC 33.8 g/dl (32-36); MONO % 6.9 %; NEUT % 47.8 %; PLATELET COUNT 9 K/uL (130-400); PLT ESTIMATE SIGNIFIC DECREASED; RED BLOOD COUNT 3.16 M/uL (4.2-5.4); WHITE BLOOD COUNT 7.56 K/uL (4.8-10.8)
[2017-10-12] MEDS: PANTOprazole SOD 40 MG TAB PO SCH ×2 (07:51→20:51)
[2017-10-12 08:00] VITALS: BP 169/83; PULSE 57; TEMP 36.6; O2SAT 98
[2017-10-12] MEDS: CEFTRIAXONE SOD INJ 1 GM in DEXTROSE 5% ADD-VANTAGE 50ML 50 ML IV SCH (09:56)
[2017-10-12] MEDS ORDERED: SCOPOLAMINE 1.5 MG TDSY TD SCH (12:00)
[2017-10-12 15:50] VITALS: BP 155/87; PULSE 70; TEMP 36.6; O2SAT 97
[2017-10-12 16:00] VITALS: O2SAT 98
[2017-10-12] MEDS ORDERED: CHECK SCOPOLAMINE PATCH PLACEMENT SCH (16:00)
[2017-10-12] MEDS ORDERED: POLYETHYLENE (MIRALAX) 17 GM PACK PO PRN (16:00)
--- NOTE | 2017-10-12 17:45 | Progress Note ---
Internal Med Progress Note Date of Service: Oct 12, 2017. Provider Documentation: SUBJECTIVE: resting comfortably 'says ambulated better today denies any bleeding episodes no sob eating ok OBJECTIVE: Vital Signs-as noted below Exam: General-alert and oriented. Not in distress ENT-Normal hearing Neck-no neck masses Lungs-CTA b/l no wheezing or crackles Heart-S1 and S2 heard. Regular rate and rhythm, no murmurs Abdomen-Soft Bowel sounds present no tenderness present no distension Extremities-no edema no erythema. Skin bruises and petechial rash seen all over Neuro-alert and awake moves extremities Lab data as noted below. 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, petechial rash and epitaxies out patient labs showed low platelets platelets 3k in Er received 5units of plateletpheresis and 4 days of iv Decadron and one dose of ivIG on 10/08/17 platelets were 12k yesterday but again dropped to 7k today received one more dose of ivIG 10/10 platelets were 17K yesterday but agin dropped to 9k today D/W heme/onco planning for bone marrow biopsy f/u labs Hypothyroidism TSH elevated, possibly due to an acute phase reaction Free t4 wnl continue Synthroid UTI on rocephin x6 rosario sensitive e.coli will change to po cefuroxime in am complete one week course Weak ambulatory dysfunction pt/ot DVT ppx SCDs DISPOSITION pt/ot to be determined Vital Signs: Date Time Temp Pulse Resp B/P (MAP) Pulse Ox O2 Delivery O2 Flow Rate FiO2 10/12/17 15:50 36.6 70 18 155/87 (109) 97 Nasal Cannula 2.0 10/12/17 08:00 Nasal Cannula 2.0 10/12/17 08:00 36.6 57 18 169/83 (111) 98 Nasal Cannula 2.0 10/12/17 00:18 36.5 62 18 154/84 (107) 92 2.0 10/12/17 00:00 Nasal Cannula 2.0 Lab Results: Results Past 24 Hours Test 10/12/17 06:25 Range/Units White Blood Count 7.56 4.8-10.8 K/uL Red Blood Count 3.16 4.2-5.4 M/uL Hemoglobin 11.0 12.0-16.0 g/dL Hematocrit 32.5 37-47 % Mean Corpuscular Volume 102.8 80-100 fL Mean Corpuscular Hemoglobin 34.8 25-34 pg Mean Corpuscular Hemoglobin Concent 33.8 32-36 g/dl Platelet Count 9 130-400 K/uL Neutrophils (%) (Auto) 47.8 % Lymphocytes (%) (Auto) 42.5 % Monocytes (%) (Auto) 6.9 % Eosinophils (%) (Auto) 2.2 % Basophils (%) (Auto) 0.1 % Neutrophils # (Auto) 3.61 1.4-6.5 K/uL Lymphocytes # (Auto) 3.21 1.2-3.4 K/uL Monocytes # (Auto) 0.52 0.11-0.59 K/uL Eosinophils # (Auto) 0.17 0-0.5 K/uL Basophils # (Auto) 0.01 0-0.2 K/uL RDW Standard Deviation 50.4 36.4-46.3 fL RDW Coefficient of Variation 13.6 11.5-14.5 % Immature Granulocyte % (Auto) 0.5 % Immature Granulocyte # (Auto) 0.04 0.00-0.02 K/uL Platelet Estimate SIGNIFIC DECREASED Immature Platelet Fraction 27.0 0.9-8.3 % Sodium Level 135 136-145 mmol/L Potassium Level 3.6 3.5-5.1 mmol/L Chloride Level 103 98-107 mmol/L Carbon Dioxide Level 26 21-32 mmol/L Anion Gap 6.0 3-11 mmol/L Blood Urea Nitrogen 25 7-18 mg/dl Creatinine 0.92 0.60-1.20 mg/dl Est Creatinine Clear Calc Drug Dose 57.8 ml/min Estimated GFR () 70.1 Estimated GFR (Non- 60.5 BUN/Creatinine Ratio 27.2 10-20 Random Glucose 102 70-99 mg/dl Calcium Level 7.8 8.5-10.1 mg/dl Magnesium Level 2.1 1.8-2.4 mg/dl
[2017-10-12] MEDS: ACETAMINOPHEN 325 MG TAB PO PRN (20:51)
[2017-10-12 23:58] VITALS: BP 150/78; PULSE 66; TEMP 36.8; O2SAT 98
[2017-10-13] VITALS (8 sets, daily range): BP systolic 112–156; BP diastolic 62–82; PULSE 60–87; TEMP 36.4–36.9; O2SAT 97–98
[2017-10-13] MEDS: LEVOTHYROXINE 150 MCG TAB PO SCH (05:45)
[2017-10-13 06:22] LABS: BASO % 0.1 %; BASO ABS # 0.01 K/uL (0-0.2); COMPLETE YES; EOS % 4.9 %; HEMATOCRIT 32.9 % (37-47); IG% 0.4 %; LYMPH % 45.1 %; LYMPH ABS # 3.39 K/uL (1.2-3.4); MEAN CELL VOLUME 103.1 fL (80-100); MEAN CORPUSCULAR HEMOGLOBIN 35.4 pg (25-34); MEAN CORPUSCULAR HGB CONC 34.3 g/dl (32-36); NEUT % 41.5 %; PLATELET COUNT 4 K/uL (130-400); PLT ESTIMATE SIGNIFIC DECREASED; RED BLOOD COUNT 3.19 M/uL (4.2-5.4); VACUOLIZATION OCCASIONAL; WHITE BLOOD COUNT 7.51 K/uL (4.8-10.8)
[2017-10-13 06:30] LABS: BUN/CREATININE RATIO 26.7 (10-20); CREATININE 0.86 mg/dl (0.60-1.20); MAGNESIUM 2.3 mg/dl (1.8-2.4); POTASSIUM 3.9 mmol/L (3.5-5.1)
[2017-10-13] MEDS: PANTOprazole SOD 40 MG TAB PO SCH (08:15)
[2017-10-13] MEDS ORDERED: CEFUROXIME AXETIL 500 MG TAB PO SCH (09:00)
--- NOTE | 2017-10-13 09:44 | Discharge Instructions ---
Discharge Instructions Date of Service Oct 13, 2017. Admission Reason for Admission: Thrombocytopenia Discharge Discharge Diagnosis / Problem: THROMBOCYTOPENIA Discharge Goals Goal(s): Decrease discomfort, Improve function Activity Recommendations Activity Level: Up Ad Nataliya . Additional Information Patient informed of condition: Yes Advance Directives: No DNR: No Level of Care: Other ([facility]) Communicable Disease: No Prognosis: Stable Oxygen at (LPM): 2LTS Sánchez Catheter: No Instructions / Follow-Up Instructions / Follow-Up FOLLOWUP PER [facility] RECOMMENDATIONS Current Hospital Diet Patient's current hospital diet: Regular Diet Discharge Diet Recommended Diet: Regular Diet Pending Studies Studies pending at discharge: no Physician Orders On Transfer Vital Signs: EVERY 8HRS Additional Orders: GO THROUGH MEDICATION LIST FOR ACCURATE MEDICATIONS Medical Emergencies . Who to Call and When: Medical Emergencies: If at any time you feel your situation is an emergency, please call 911 immediately. . Non-Emergent Contact Non-Emergency issues call your: Primary Care Provider . . "Provider Documentation" section prepared by Yuri Baptiste. . Core Measure Problem Core Measures: None
[2017-10-13] MEDS: ONDANSETRON INJ 2 MG/ML 2 ML VIAL IV PRN (12:40)
--- NOTE | 2017-10-13 12:49 | Progress Note ---
Internal Med Progress Note Date of Service: Oct 13, 2017. Provider Documentation: SUBJECTIVE: resting comfortably slept ok eating fine says she was constipated and had little blood in stool but no more episodes since then no sob ok for transfer to [place] OBJECTIVE: Vital Signs-as noted below Exam: General-alert and oriented. Not in distress ENT-Normal hearing Neck-no neck masses Lungs-CTA b/l no wheezing or crackles Heart-S1 and S2 heard. Regular rate and rhythm, no murmurs Abdomen-Soft Bowel sounds present no tenderness present no distension Extremities-no edema no erythema. Skin bruises and petechial rash seen all over Neuro-alert and awake moves extremities Lab data as noted below. 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 D/W heme/onco planning for bone marrow biopsy f/u labs Hypothyroidism TSH elevated, possibly due to an acute phase reaction Free t4 wnl continue Synthroid UTI on rocephin x6 rosario sensitive e.coli will change to po cefuroxime in am complete one week course Weak ambulatory dysfunction pt/ot DVT ppx SCDs DISPOSITION discharged and transferring to [place] Vital Signs: Date Time Temp Pulse Resp B/P (MAP) Pulse Ox O2 Delivery O2 Flow Rate FiO2 10/13/17 10:29 36.7 83 18 98 Nasal Cannula 10/13/17 09:45 36.7 83 18 128/62 10/13/17 09:15 36.6 83 18 112/68 10/13/17 09:00 36.9 87 18 129/73 98 10/13/17 08:39 36.9 87 18 129/73 10/13/17 08:25 Nasal Cannula 2.0 10/13/17 07:50 36.8 60 20 156/82 (106) 98 10/13/17 00:30 98 Nasal Cannula 2.0 10/12/17 23:58 36.8 66 20 150/78 (102) 98 Nasal Cannula 2.0 10/12/17 16:00 98 Room Air 10/12/17 15:50 36.6 70 18 155/87 (109) 97 Nasal Cannula 2.0 Lab Results: Results Past 24 Hours Test 10/13/17 05:33 Range/Units White Blood Count 7.51 4.8-10.8 K/uL Red Blood Count 3.19 4.2-5.4 M/uL Hemoglobin 11.3 12.0-16.0 g/dL Hematocrit 32.9 37-47 % Mean Corpuscular Volume 103.1 80-100 fL Mean Corpuscular Hemoglobin 35.4 25-34 pg Mean Corpuscular Hemoglobin Concent 34.3 32-36 g/dl Platelet Count 4 130-400 K/uL Neutrophils (%) (Auto) 41.5 % Lymphocytes (%) (Auto) 45.1 % Monocytes (%) (Auto) 8.0 % Eosinophils (%) (Auto) 4.9 % Basophils (%) (Auto) 0.1 % Neutrophils # (Auto) 3.11 1.4-6.5 K/uL Lymphocytes # (Auto) 3.39 1.2-3.4 K/uL Monocytes # (Auto) 0.60 0.11-0.59 K/uL Eosinophils # (Auto) 0.37 0-0.5 K/uL Basophils # (Auto) 0.01 0-0.2 K/uL RDW Standard Deviation 51.5 36.4-46.3 fL RDW Coefficient of Variation 13.9 11.5-14.5 % Immature Granulocyte % (Auto) 0.4 % Immature Granulocyte # (Auto) 0.03 0.00-0.02 K/uL Toxic Vacuolation OCCASIONAL Platelet Estimate SIGNIFIC DECREASED Sodium Level 136 136-145 mmol/L Potassium Level 3.9 3.5-5.1 mmol/L Chloride Level 103 98-107 mmol/L Carbon Dioxide Level 27 21-32 mmol/L Anion Gap 6.0 3-11 mmol/L Blood Urea Nitrogen 23 7-18 mg/dl Creatinine 0.86 0.60-1.20 mg/dl Est Creatinine Clear Calc Drug Dose 61.8 ml/min Estimated GFR () 76.1 Estimated GFR (Non- 65.6 BUN/Creatinine Ratio 26.7 10-20 Random Glucose 94 70-99 mg/dl Calcium Level 8.0 8.5-10.1 mg/dl Magnesium Level 2.3 1.8-2.4 mg/dl
--- NOTE | 2017-10-13 12:52 | Discharge Summary ---
Discharge Summary Date of Service Oct 13, 2017. Discharge Summary Admission Date: Oct 06, 2017 at 20:08 Discharge Date: Oct 13, 2017 Discharge Disposition: Acute care facility ([facility]) Principal Diagnosis: THROMBOCYTOPENIA. ITP? Secondary Diagnoses/Problems: HYPOTHYROIDISM Procedures: CXR: Negative chest. CT HEAD: No acute intracranial abnormality. Age-related chronic small vessel change ABDOMINAL US; 1. Gallstones within the gallbladder. 2. Normal caliber bile duct. 3.. Normal liver and spleen Consultations: HEME/ONCO Medication Reconciliation Continued Medications: Calcium/Vitamin D (Os-Jayjay 500 Plus D) Tab 1 TAB PO DAILY, 0 Refills Cholecalciferol (Vitamin D) 1,000 Inter.unit Tab 1000 INTER.UNIT PO DAILY, TAB Glucosamine-Chondroitin (Glucosamine/Chondroitin) 500 Mg/400 Mg Cap 1 TAB PO DAILY Levothyroxine Sodium (Synthroid) 150 Mcg Tab 150 MCG PO DAILY, TAB Meclizine Hcl (Meclizine Hcl) 25 Mg Tab 25 MG PO TID PRN for DIZZINESS Multiple Vitamins W/ Minerals (Centrum Silver 50+Women) 1 Tab Tab 1 TAB PO QAM Discontinued Medications: Ascorbic Acid (Vitamin C *) 500 Mg Tab 500 MG PO DAILY, 0 Refills Aspirin Enteric Coated (Ecotrin Or Generic) 81 Mg Tab 81 MG PO QAM, 0 Refills Fish Oil ([place]-3) Oil 1 CAP PO DAILY Admission Information HPI (per Admitting provider): This is a 77 year old female with a PMH of hypothyroidism, HLD - presents with a one week history of nose bleeds, petechiae and bruising noted throughout body ; and she also developed hematuria on the day of arrival. She was seen by her primary care physician as an outpatient. She had blood work done and noted to have platelets < 10k. She was told to come to the ER right away for further evaluation. Upon presentation, she continued to have intermittent nose bleeds and hematuria. She denied any illness prior to these events. Denies any change in diet or medications. No chest pain/shortness of breath, denies nausea/ vomiting/diarrhea. Physical Exam (per Admitting): General Appearance: no apparent distress Head: normocephalic, atraumatic Eyes: normal inspection ENT: hearing grossly normal, + pertinent finding (epistaxis stopped during my exam) Respiratory/Chest: lungs clear, normal breath sounds, no respiratory distress, no accessory muscle use Cardiovascular: regular rate, rhythm, no edema, no murmur Extremities/Musculoskelatal: normal inspection, no calf tenderness, normal capillary refill, no pedal edema, normal range of motion Neurologic/Psych: no motor/sensory deficits, alert, normal mood/affect Skin: + pertinent finding (+petechiae throughout body; bruising noted throughout including a large ecchymotic area on the R chest wall) Hospital Course This is a 77 year old female with a PMH of hypothyroidism, HLD presents with epistaxis, hematuria, bruising and noted to have significant thrombocytopenia 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 f/u labs Hypothyroidism TSH elevated, possibly due to an acute phase reaction Free t4 wnl continue Synthroid UTI on rocephin x6 rosario sensitive e.coli will change to po cefuroxime in am complete one week course Weak ambulatory dysfunction pt/ot DVT ppx SCDs DISPOSITION discharged and transferring to [place] Total time spent on discharge = 40MINUTES This includes examination of the patient, discharge planning, medication reconciliation, and communication with other providers. Discharge Instructions Discharge Instructions Date of Service Oct 13, 2017. Admission Reason for Admission: Thrombocytopenia Discharge Discharge Diagnosis / Problem: THROMBOCYTOPENIA Discharge Goals Goal(s): Decrease discomfort, Improve function Activity Recommendations Activity Level: Up Ad Nataliya . Additional Information Patient informed of condition: Yes Advance Directives: No DNR: No Level of Care: Other ([facility], [place]) Communicable Disease: No Prognosis: Stable Oxygen at (LPM): 2LTS Sánchez Catheter: No Instructions / Follow-Up Instructions / Follow-Up FOLLOWUP PER [facility] RECOMMENDATIONS Current Hospital Diet Patient's current hospital diet: Regular Diet Discharge Diet Recommended Diet: Regular Diet Pending Studies Studies pending at discharge: no Physician Orders On Transfer Vital Signs: EVERY 8HRS Additional Orders: GO THROUGH MEDICATION LIST FOR ACCURATE MEDICATIONS Medical Emergencies . Who to Call and When: Medical Emergencies: If at any time you feel your situation is an emergency, please call 911 immediately. . Non-Emergent Contact Non-Emergency issues call your: Primary Care Provider . . "Provider Documentation" section prepared by Yuri Baptiste. . Core Measure Problem Core Measures: None
[2017-10-13] MEDS: ACETAMINOPHEN 325 MG TAB PO PRN (14:55)
== END 2017-10-13 18:25 | disposition short-term general hospital (02) | DRG 813 ==
LOC: EDBD 17:05 → C.EDB 17:06 → C.2T 20:08 → ENRESERV 20:17 → C.MED 10-11 13:47
PROVIDERS: ADMIT Family Medicine; ATTEND Internal Medicine
DX: D69.3 Immune thrombocytopenic purpura (principal); N39.0 Urinary tract infection, site not specified; B96.20 Unspecified Escherichia coli [E. coli] as the cause of diseases classified elsewhere; E03.9 Hypothyroidism, unspecified; R53.1 Weakness; E78.5 Hyperlipidemia, unspecified; I08.1 Rheumatic disorders of both mitral and tricuspid valves; Z87.891 Personal history of nicotine dependence; Z79.82 Long term (current) use of aspirin; Z79.899 Other long term (current) drug therapy